=== PATIENT | male | born 1935 | race Caucasian/White ===

== ENCOUNTER 2019-08-25 11:40 | Emergency (ER) | payer MEDICARE ==
[~2019-08-25] VITALS: Ht 180.3 cm; Wt 72.7 kg
[~2019-08-25 11:40] MED LIST: ASPIRIN EC325 MG PO; ASPIRIN EC81 MG PO; AZITHROMYCIN500 MG PO; CYCLOBENZAPRINE5 MG PO; DEMADEX20 MG PO; FLAGYL500 MG PO; HYDRALAZINE HCL25 MG PO; HYDROCHLOROTHIA25 MG PO; ISOSORBIDE MONO30 MG PO; KLOR-CON M2020 MEQ PO; LEVOTHYROXINE100 MCG PO; SENNA GEN PO; SIMVASTATIN80 MG PO; SYMBICORT 16010.2 GM INH; TAMSULOSIN HCL0.4 MG PO; TORSEMIDE5 MG PO; VITAMIN D5000 UNIT PO; WARFARIN SODIUM5 MG PO
[2019-08-25] MEDS ORDERED: IMODIUM A-D2 M2 PO (14:10)
[2019-08-29] MEDS ORDERED: HYDRALAZINE HCL10 MG PO (08:01)
[2019-09-03] MEDS ORDERED: VANCOCIN HCL125 MG PO (13:22)
[2019-09-09] MEDS ORDERED: VANCOMYCIN HCL125 MG PO (10:43)
== END 2019-08-25 14:23 | disposition home or self-care (01) ==
LOC: ED 11:40
DX: R19.7 Diarrhea, unspecified (principal); I10 Essential (primary) hypertension; J44.9 Chronic obstructive pulmonary disease, unspecified; I25.2 Old myocardial infarction; Z87.891 Personal history of nicotine dependence; Z79.899 Other long term (current) drug therapy; Z79.01 Long term (current) use of anticoagulants
CPT/HCPCS: 36415; 80053; 85025; 99284

== ENCOUNTER 2020-06-21 10:43 | Inpatient (IN) | payer MEDICARE, OTHER ==
[~2020-06-21] VITALS: Ht 180.3 cm; Wt 72.6 kg
[~2020-06-21 10:43] MED LIST changes: +HYDRALAZINE HCL10 MG PO; +IMODIUM A-D2 M2 PO; +VANCOCIN HCL125 MG PO; +VANCOMYCIN HCL125 MG PO
--- NOTE | 2020-06-21 16:31 | EKG ---
[facility] [address] [place] [address] Signed Atrial fibrillation Nonspecific ST and T wave abnormality Abnormal ECG No previous ECGs available Confirmed by RAUL BULL DO ([id number]) on 06/21/2020 4:30:56 PM Electronically Signed By: RAUL BULL DO 06/21/20 1631 PATIENT NAME: TRENT JUNIOR Electrocardiogram DATE OF : 31 PHYSICIAN: RAUL BULL DO REPORT #: [id number] REPORT IS CONFIDENTIAL AND NOT TO BE RELEASED WITHOUT AUTHORIZATION
[2020-06-21] MEDS ORDERED: FEOSOL325 MG PO (16:59)
[2020-06-21] MEDS ORDERED: VITAMIN B-12100 MCG PO (17:00)
--- NOTE | 2020-06-21 17:01 | NUR ---
1605: PT ARRIVED TO ROOM 122 WITH HIS DAUGHTER PRESENT. PT DENIES ANY PAIN OR SOB. SAT ON HIS CHRONIC 4L O2 IS 100%, LUNG SOUNDS DECREASED IN ALL LOBES AND CRACKLES NOTED IN THE RLL. CALL HARPER WITHIN REACH AND PT ORIENTED TO HIS ROOM AND REQUESTED TO CALL BEFORE GETTING UP, PT STATES UNDERSTANDING. SEE ASSESSMENT.
--- NOTE | 2020-06-21 18:37 | NUR ---
PT RESTING IN BED AND CONTINUES TO DENY ANY PROBLEMS. VSS. PT'S DAUGHTER REMAINS AT THE BEDSIDE.
--- NOTE | 2020-06-21 19:24 | NUR ---
REPORT RECEIVED FROM DAY SHIFT RN. PT LYING IN BED WITH EYES CLOSED, NAD. O2 4L/NC IN PLACE. DAUGHTER IN ROOM. DENIES NEEDS. WHITE BOARD UPDATED. CALL LIGHT IN REACH.
--- NOTE | 2020-06-21 19:43 | NUR ---
BED ALARM WENT OFF. PATIENT WAS UP BY THE BED WANTING TO USE THE TOILET. 1 PA/SBA. PATIENT IS BACK IN BED, BED ALARM ON FOR SAFETY.
--- NOTE | 2020-06-21 20:31 | NUR ---
pt USED CALL LIGHT TO ASK FOR ASSISTANCE. STATES HE IS TOO WARM, AND NEEDS AN ADDITIONAL PILLOW UNDER HIS FEET. THE TEMP WAS TURNED DOWN TO 72 VERSUS 76. NOTHING FURTHER NEEDED AT THIS TIME.
--- NOTE | 2020-06-21 20:47 | NUR ---
pt REQUESTED ANOTHER PILLOW UNDER HIS FEET. "I ELEVATE MY FEET ABOUT 10-12 INCHES AT HOME, THIS FEELS ABOUT RIGHT". NOTHING FURTHER NEEDED. BED ALARM ON.
--- NOTE | 2020-06-21 21:04 | NUR ---
pt USED CALL LIGHT TO ASK FOR ASSISTANCE USING THE RESTROOM. pt STOOD AT BEDSIDE AND USED URINAL. VS AND I&Os COMPLETE. RN GEORGINA IN pt ROOM AT THIS TIME.
--- NOTE | 2020-06-21 21:27 | NUR ---
EVENING ASSESSMENT COMPLETE. SCHEDULED MEDS ADMINISTERED PER EMAR. PT ALERT AND ORIENTED. DENIES PAIN OR SOB. O2 4L/NC IN PLACE. BLE EDEMA NOTED. BLE ELEVATED ON PILLOWS. PT REMAINS WELL WITHIN FLUID RESTRICTION. DENIES QUESTIONS OR CONCERNS. CALL LIGHT IN REACH. BED ALARM FOR SAFETY.
--- NOTE | 2020-06-21 21:53 | NUR ---
pt CAUSED BED ALARM TO GO OFF, STATES HE WAS TRYING TO ADJUST HIS PILLOWS. THEN ASKED IF THIS CERTIFIED MEDICATION AIDE WOULD HELP HIM WITH USING THE URINAL. HE VOIDED 125ccs. BACK INTO BED, BED ALARM SET, CALL LIGHT WITHIN REACH. NO FURTHER NEEDS AT THIS TIME.
--- NOTE | 2020-06-21 22:37 | NUR ---
BED ALARM WENT OFF. PATIENT WAS UP TO USE THE BATHROOM. SBA. PATIENT VOIDED UNMEASURED. PATIENT IS BACK IN BED. BED ALARM ON FOR SAFETY.
--- NOTE | 2020-06-22 00:11 | NUR ---
PATIENT CALLED TO USE THE BATHROOM. SBA.
--- NOTE | 2020-06-22 01:56 | NUR ---
CALL LIGHT ANSWERED. SBA TO BR TO VOID. BACK TO BED, TENISHA WELL. DENIES PAIN OR SOB. O2 4L/NC IN PLACE. ASSISTED TO REPOSITION IN BED. NO FURTHER NEEDS. BED ALARM FOR SAFETY. CALL LIGHT IN REACH.
--- NOTE | 2020-06-22 03:23 | NUR ---
PATIENT CALLED. PATIENT STOOD UP TO USE THE URINAL. PATIENT IS BACK IN BED. WARM BLANKET PROVIDED. BED ALARM ON FOR SAFETY.
--- NOTE | 2020-06-22 05:11 | NUR ---
pt USED CALL LIGHT TO ASK TO USE THE RESTROOM. VS COMPLETE ALONG WITH WEIGHT. NOTHING FURTHER NEEDED AT THIS TIME.
--- NOTE | 2020-06-22 05:22 | NUR ---
SCHEDULED MEDS ADMINISTERED. PT DENIES PAIN OR SOB. STATES "THE ONLY THING I NEEDS IS MORE SLEEP". OXYGEN IN PLACE. BLE ELEVATED ON PILLOWS. BED ALARM FOR SAFETY. CALL LIGHT IN REACH.
--- NOTE | 2020-06-22 07:38 | NUR ---
RECEIVED REPORT FROM GEORGINA MCRAE. PT APPEARS TO BE RESTING COMFORTABLY IN BED BUT WAKES UP WITH SOUND OF THIS RN ENTERING ROOM. PT TO HAVE AN ECHO THIS AM
--- NOTE | 2020-06-22 10:15 | NUR ---
PATIENT SLEEPING. WILL RETURN LATER.
--- NOTE | 2020-06-22 10:30 | NUR ---
PATIENT IN BED RESTING WITH EYES CLOSED, VISITOR IN ROOM. CALL LIGHT IN REACH. NO FURTHER NEEDS AT THIS TIME.
--- NOTE | 2020-06-22 11:31 | NUR ---
this rn in pts room to give flu vaccine and added meds to emar. pts daughter at bedside at this time. pt reports no pain and daughter states that he is looking better.
--- NOTE | 2020-06-22 11:43 | NUR ---
PATIENT WITH PHYSICAL THERAPY. WILL RETURN LATER.
--- NOTE | 2020-06-22 13:20 | NUR ---
SPOKE WITH PATIENT AND DAUGHTER IN ROOM. PATIENT WITH HOB UP EATING LUNCH. PATIENT LIVES ALONE IN [place]. HAS TWO STEPS INTO HOME. USES A WALKER. DOES NOT DRIVE. DAUGHTER ROSETTA IS IN ROOM AND SHE IS STAYING WITH HIM AT THIS TIME. PATIENT IS RETIRED. USES OXYGEN CONTINUOUSLY AT 4LNC [facility]OUGH [facility]. HE PLANS TO RETURN HOME AT DISCHARGE. HE DENIES CONCERN TO AFFORD MEDS, FOOD OR UTILITIES. DAUGHTER STATES SHE WILL BE WITH HIM AT HOME. CM WILL FOLLOW NEEDED.
--- NOTE | 2020-06-22 13:45 | NUR ---
PATIENT IN BED RESTING WITH EYES CLOSED. CALL LIGHT IN REACH. NO FURTHER NEEDS AT THIS TIME. FRESH WATER GIVEN.
--- NOTE | 2020-06-22 13:47 | NUR ---
THIS RN IN PTS ROOM TO GIVE AFTERNOON MEDS AND CHAVARRIA AFTERNOON ASSESSMENT. PT DROWSY BUT EASILY WAKES UP. PT STATES HE HAS NO CONCERNS AT THIS TIME. PT DOES NOT LIKE TO HAVE ICE IN HIS FLUIDS. THIS RN GAVE PT A FEW SIPS OF WATER. BED ALARM ON DUE TO PTS DAUGHTER NOT IN ROOM. URINAL AND CALL LIGHT WITHIN REACH
--- NOTE | 2020-06-22 13:48 | NUR ---
PATIENT IN BED RESTING WITH EYES CLOSED. FRESH WATER GIVEN. CALL LIGHT IN REACH. NO FURTHER NEEDS AT THIS TIME.
--- NOTE | 2020-06-22 15:42 | NUR ---
THIS RN IN PTS ROOM TO GIVE PT AFTERNOON MEDS. PT SITTING UP IN CHAIR. PT HAS NO COMPLAINTS AND STATES "I FEEL MUCH BETTER" PT POINTED TO HIS ANKLES AND STATED THEY LOOKED BETTER.
--- NOTE | 2020-06-22 17:36 | NUR ---
PT SITTING UP IN CHAIR EATING DINNER AT THIS TIME. PT HAS NO COMPLIANTS OR CONCERNS
--- NOTE | 2020-06-22 18:15 | NUR ---
PATIENT SITTING IN CHAIR WATCHING TV. B\P LOW. TAKEN TWICE LEFT ARM 84/47 57 MAP, RIGHT ARM 94/44 57 MAP. RN NOTIFIED. LINDSAY LIGHT IN REACH. NO FURTHER NEEDS AT THIS TIME.
--- NOTE | 2020-06-22 18:38 | NUR ---
THIS RN IN PTS ROOM TO RECHECK PTS BP. PT STATES HE DOES NOT FEEL ANY EFFECTS OF HAVING A LOW BP. MD NOT NOTIFIED DUE TO BP OUTSIDE OF CALL PARAMETERS
--- NOTE | 2020-06-22 19:37 | NUR ---
REPORT RECEIVED FROM DAY SHIFT RN. PT LYING IN BED ALERT AND ORIENTED. RR EVEN AND UNLABORED. O2 4L/NC IN PLACE. FAMILY IN ROOM. PT DENIES NEEDS. WHITE BOARD UPDATED. CALL LIGHT IN REACH. BED ALARM FOR SAFETY.
--- NOTE | 2020-06-22 20:50 | NUR ---
BED ALARM SOUNDING. PT SITTING ON EDGE OF BED, WANTING EXTRA COVERS OFF BED, THEN WANTED TO USE THE BR, THOUGHT HE WAS GOING TO HAVE A BM. JUST VOIDED. BACK TO BED, WITH MIMINAL ASSISTANCE. BED ALARM PLACED, REMINDED PT TO USE CALL LIGHT WHEN HE NEEDS TO GET UP.
--- NOTE | 2020-06-22 22:26 | NUR ---
EVENING ASSESSMENT COMPLETE. SCHEDULED MEDS ADMINISTERED PER EMAR. SCHEDULED CARDIAC MED HELD DUE TO LOW BLOOD PRESSURE. PT DENIES SOB. NO PAIN OR NAUSEA. O2 4L/NC IN PLACE. RR EVEN AND UNLABORED. EDEMA NOTED BLE. BLE ELEVATED ON PILLOWS. PT REPORTS BEING DROWSY HE DID NOT SLEEP MUCH LAST NOC. DENIES FURTHER NEEDS. BED ALARM FOR SAFETY. CALL LIGHT IN REACH.
--- NOTE | 2020-06-23 00:30 | NUR ---
BED ALARM SOUNDING. PT STOOD AT SIDE OF BED TO URINATE WITH NO RESULTS. BACK IN BED. BLE ELEVATED. NO SOB NOTED. 4L/NC IN PLACE. BED ALARM FOR SAFETY.
--- NOTE | 2020-06-23 01:29 | NUR ---
bed alarm went off. PATIENT IS UP. PATIENT WANTED TO GET UP AND WALK AROUND THE ROOM. THIS PATIENT SERVICES REPRESENTATIVE STAYED WITH THE PATIENT. PATIENT SITS ON THE CHAIR WHEN GETS TIRED. PATIENT LIKES TO TALK. PATIENT STILL UP IN THE CHAIR RESTING. PRIMARY RN IS WITH PATIENT.
--- NOTE | 2020-06-23 03:02 | NUR ---
PT AWAKE SITTING IN RECLINER. REQUESTING PRN FOR CONSTIPATION. NIO FOR BOWEL CARE. ADMINISTERED PER ORDER. PT WISHES TO REMAIN IN CHAIR AND AMB IN ROOM. PATTERNMAKER PRESSURE CAST IN ROOM FOR SAFETY.
--- NOTE | 2020-06-23 04:30 | NUR ---
PT UP AND DOWN FROM RECLINER TO AMBULATE. ACCOUNTANCY PROFESSOR WAS IN ROOM TO ASSIST. PT REMAINS IN RECLINER, CHAIR ALARM PLACED AT THIS TIME. APPLE JUICE PROVIDED. PT DENIES PAIN OR SOB. RESPIRATIONS EVEN AND UNLABORED.
--- NOTE | 2020-06-23 04:37 | NUR ---
SPENT TIME VISITING WITH pt, ASSISTED WITH EXERCISES, AND PROVIDED COMPANY. HE IS NOW IN BED TRYING TO GET SOME MORE REST. NOTHING FURTHER NEEDED AT THIS TIME.
--- NOTE | 2020-06-23 05:38 | NUR ---
pt USED CALL LIGHT TO ASK FOR ASSISTANCE INTO THE RESTROOM. VS AND I&Os COMPLETE, BED ALARM SET. NOTHING FURTHER NEEDED.
--- NOTE | 2020-06-23 06:52 | NUR ---
SCHEDULED MEDS ADMINISTERED. PT RESTING IN BED, DENIES NEEDS. CALL LIGHT IN REACH. BED ALARM FOR SAFETY.
--- NOTE | 2020-06-23 07:37 | NUR ---
Entered pt room for shift report from Marlene MCRAE and Pia RN (electronic news gathering camera person). Pt was lying in bed, bed alarm on, resting appearing comfortable. Pt woke to our introduction and greeted us pleasantly, having no concerns to report at this time. Pt was left lying in bed in its lowest position, bed alarm on, call light within reach.
--- NOTE | 2020-06-23 07:41 | NUR ---
Entered pt room responding to call light. Pt helped to the bedside to use urinal. Pt was able to void and reported no further urge. Pt helped back into bed, bed alarm put back on, call light within reach.
--- NOTE | 2020-06-23 08:25 | NUR ---
PATIENT USING THE BATHROOM. PATIENT BACKS TO CHAIR. ONE PERSON ASSISTING WITH WALKER. WHITE BOARD UPDATED. LINENS CHANGED. CALL LIGHT WITHIN REACH. NO OTHER NEEDS AT THIS TIME
--- NOTE | 2020-06-23 09:22 | NUR ---
Entered pt room for med pass. Pt was sitting up in chair finishing breakfast. Pt was assisted to the bathroom by Quyen MCRAE, with his walker as well, and advised to use light when finished; we were outside door. Pt was assisted back to chair. Pt took medications without difficulty. Pt was left sitting up in chair, table in front of him, call light within reach. Pt stated no further needs at this time.
--- NOTE | 2020-06-23 09:50 | NUR ---
PATIENT SITTING UP IN CHAIR. VISITOR AND RN IN ROOM. VITAL SIGNS AND I&O DONE. CALL LIGHT WITHIN REACH. NO OTHER NEEDS AT THIS TIME
--- NOTE | 2020-06-23 11:30 | NUR ---
Spoke with Juan Diego and his daughter, Aniya. Daughter is here from [place] staying with dad since December. She is able to cont. her job from home. She states he is weak and deconditioned and she would like him to return to [facility] so he can remain at home. Discussed with Juan Digeo and he is agreement. He also states knee and hip pain limit his activitiy. Pt was discussed in [address] Toribio and he was in agreement for Transitional Care for Rehab. Brochure for Transition Care given with list of rehab programs in the area. Also gave brochure for [facility] as daughter states she has to return to [place] monthly for 2-3 days. She would like someone to stay with her dad at night. Let her know, [facility] has a waiting list, so she will need to call sooner to get on the list.
--- NOTE | 2020-06-23 12:10 | NUR ---
PT SITTING IN CHAIR, TV ON AND DAUGHTER AT HIS SIDE. PT STATES HE IS FEELING MUCH BETTER. THANKED ME FOR COMING IN. GAVE BLESSING
--- NOTE | 2020-06-23 13:32 | NUR ---
PATIENT SITTING UP IN CHAIR. VITAL SIGNS AND I&O DONE. LOW BLOOD PRESSURE. RN NOTIFIED. CALL LIGHT WITHIN REACH. NO OTHER NEEDS AT THIS TIME
--- NOTE | 2020-06-23 13:38 | NUR ---
VORB TO HOLD TORSEMIDE AT THIS TIME DUE TO BP OF 95/45, P49.
--- NOTE | 2020-06-23 14:42 | NUR ---
Entered pt room to do afternoon assessment with Quyen MCRAE. Pt was reclining in the chair, with his left knee under a hot-pack post PT exercises with Maggie PT. Pt reports some soreness in his L knee, but no pain or other complaints at this time. Pt was left reclining in his chair, L knee being warmed, call light within reach, table beside him.
--- NOTE | 2020-06-23 15:53 | NUR ---
PATIENT SITTING UP IN CHAIR. RN IN ROOM. PATIENT REFUSED TO TAKE A SHOWER TODAY. PATIENT WOULD LIKE TO TAKE A SHOWER TOMORROW. CALL LIGHT WITHIN REACH. NO OTHER NEEDS AT THIS TIME
--- NOTE | 2020-06-23 17:52 | NUR ---
PATIENT SITTING UP IN CHAIR. VITAL SIGNS AND I&O DONE. CALL LIGHT WITHIN REACH. NO OTHER NEEDS AT THIS TIME
--- NOTE | 2020-06-23 20:01 | NUR ---
PATIENT UP IN BEDSIDE ARM CHAIR WITH FAMILY AT BEDSIDE. PATIENT DENIES ANY NEEDS AT THIS TIME. CALL LIGHT IN REACH. PATIENT APPEARS AND DENIES ANY DISTRESS. CALL LIGHT IN REACH. PATIENT REMAINS ON HIS CHRONIC 4L/NC.
--- NOTE | 2020-06-23 21:53 | NUR ---
V/S AND I&O TAKEN AND CHARTED.
--- NOTE | 2020-06-23 21:55 | NUR ---
PATIENT JUST BACK FROM THE BATHROOM AND IN BED ON HIS 4L/NC AND DOING WELL, RADIAL AND APICAL PULSE 62. PATIENT TOOK HIS PM MEDS WITHOUT DIFFICULTY AND IS READY TO GO TO SLEEP. WARM BLANKETS GIVEN AND PATIENT TUCKED IN. CALL LIGHT IN REACH. NIGHT LIGHT ON.
--- NOTE | 2020-06-23 23:04 | NUR ---
PATIENT IS RESTING QUIETLY SUPINE, RESPIRATIONS REGULAR AND EVEN, CALL LIGHT IN REACH.
--- NOTE | 2020-06-24 00:21 | NUR ---
PATIENT RESTING QUIETLY ON HIS RIGHT SIDE, RESPIRATIONS REGULAR AND EVEN, EYES CLOSED AND CALL LIGHT IN REACH.
--- NOTE | 2020-06-24 02:00 | NUR ---
PATIENT RESTING QUIETLY ON LEFT SIDE, RESPIRATIONS REGULAR AND EVEN AND EYES CLOSED. REMAINS ON 4L/NC. CALL LIGHT IN REACH.
--- NOTE | 2020-06-24 02:58 | NUR ---
PATIENT HAD VOIDED 100MLS IN URINAL AND THIS WAS DOCUMENTED AND PATIENT IS BACK TO SLEEP. CALL LIGHT IN REACH.
--- NOTE | 2020-06-24 05:25 | NUR ---
PATIENT HAS PRETTY MUCH SLEPT THROUGH THE NIGHT AND HAS ONLY CALLED ONCE TO HAVE HIS BED ADJUSTED. REMAINS ON HIS 4L/NC. PATIENT HAS BEEN USING THE URINAL AT BEDSIDE. PATIENT WILL BE GOING TO SWING BED STATUS TODAY.
--- NOTE | 2020-06-24 08:02 | NUR ---
RECIEVED REPORT FROM MARTINE MCRAE. PT APPEARS TO BE RESTING AT THIS TIME WITH RESPIRATIONS NOTED.
--- NOTE | 2020-06-24 09:55 | NUR ---
THIS RN IN PTS ROOM TO GIVE MORNING MEDS AND DO MORNING ASSESSMENT. PT HAS NO CONCERNS OR NEEDS AT THIS TIME. PTS DAUGHTER HAD QUESTIONS AND THIS RN ANSWERED ALL TO THE BEST OF HER ABILITY
== END 2020-06-24 10:40 | disposition swing bed (61) | DRG 291 ==
LOC: ED 10:43 → MS 15:22
PROVIDERS: ADMIT Student in an Organized Health Care Education/Training Program; ATTEND Student in an Organized Health Care Education/Training Program
DX: I13.0 Hypertensive heart and chronic kidney disease with heart failure and stage 1 through stage 4 chronic kidney disease, or unspecified chronic kidney disease (principal); I50.33 Acute on chronic diastolic (congestive) heart failure; J96.11 Chronic respiratory failure with hypoxia; Z20.828 Contact with and (suspected) exposure to other viral communicable diseases; N18.9 Chronic kidney disease, unspecified; I48.0 Paroxysmal atrial fibrillation; E78.5 Hyperlipidemia, unspecified; I73.9 Peripheral vascular disease, unspecified; I25.10 Atherosclerotic heart disease of native coronary artery without angina pectoris; I25.2 Old myocardial infarction; J44.9 Chronic obstructive pulmonary disease, unspecified; N40.0 Benign prostatic hyperplasia without lower urinary tract symptoms; Z99.81 Dependence on supplemental oxygen; Z95.5 Presence of coronary angioplasty implant and graft; Z79.01 Long term (current) use of anticoagulants; Z87.891 Personal history of nicotine dependence; Z79.51 Long term (current) use of inhaled steroids; Z79.899 Other long term (current) drug therapy
CPT/HCPCS: 36415; 71046; 80048; 81001; 83605; 83735; 83880; 84443; 84484; 85025; 85610; 90662; 93005; 93010; 93306; 94760; 97110; 97116; 97162; 97165; 99285-25; C9803; J1940

== ENCOUNTER 2020-06-24 10:40 | Inpatient (IN) | payer MEDICARE, OTHER ==
[~2020-06-24] VITALS: Ht 180.3 cm; Wt 71.7 kg
[~2020-06-24 10:40] MED LIST changes: +FEOSOL325 MG PO; +VITAMIN B-12100 MCG PO
--- NOTE | 2020-06-24 11:10 | NUR ---
PATIENT CALLED FOR ASSISTANCE TO CHAIR FROM BED. 1PA WITH FWW. FACE AND HANDS WASHED. REFUSED ORAL CARE. O/T IN FOR EXCERCISES. DAUGHTER IN ROOM. LINENS CHANGED
--- NOTE | 2020-06-24 11:20 | NUR ---
Spoke with pt. He is walking in the [place] with his daughter.
--- NOTE | 2020-06-24 14:27 | NUR ---
THIS RN IN PTS ROOM TO GIVE PT MEDS AND DO ASSESSMENT. PT SITTING UP TO THE CHAIR AND IS A BIT DROWSY THIS AFTERNOON, PT RESPONSIVE TO VOICE THOUGH. PT HAS NO COMPLAINTS AT THIS TIME
--- NOTE | 2020-06-24 15:04 | NUR ---
PATIENT UP IN CHAIR, I&OS CHARTED. DIETARY IN FOR DINNER ORDER. CALL LIGHT IN REACH
--- NOTE | 2020-06-24 19:35 | NUR ---
SHIFT REPORT FROM NURSE PHAM. PT UP IN CHAIR, DAUGHTER IN ROOM VISITING. NO REQUESTS AT THIS TIME.
--- NOTE | 2020-06-24 22:21 | NUR ---
PT ASSISTED TO BED. BP WAS SLIGHTLY HYPOTENSIVE AT 105/59 WITH A MAP OF 69. HR IS IRREGULAR WHICH IS PREVIOUSLY KNOWN. BP MEDS HELD D/T LOW BP/MAP. PT TO CALL FOR ASSISTANCE TO BATHROOM. CALL LIGHT WITHIN REACH.
--- NOTE | 2020-06-25 01:53 | NUR ---
ROUNDS COMPLETE. PT LAYING RIGHT LATERAL IN BED. NO APPARENT SIGNS OF DISTRESS.
--- NOTE | 2020-06-25 05:44 | NUR ---
IN ROOM FOR MORNING WEIGHT AND I&OS. PT WAS SLEEPING PEACEFULLY. ASSESSMENT COMPLETE. NO REQUESTS AT THIS TIME. CALL LIGHT WITHIN REACH
--- NOTE | 2020-06-25 07:23 | NUR ---
REPORT RECEIVED FROM THOR RICE. PT RESTING IN BED. PT DENIES PAIN AND NAUSEA. PT ASSISTED WITH ORDERING BREAKFAST. NO ADDITIONAL REQUESTS OR COMPLAINTS AT THIS TIME. CALL LIGHT WITHIN REACH.
--- NOTE | 2020-06-25 09:45 | NUR ---
MORNING ASSESSMENT AND MEDICATION DUE. PT WORKING WITH PHYSIAL THERAPY. PT TOLEARTES AMAMBULATION IN ANGELA WELL WITH 1 REST BREAK DURING 1.5 LAPS IN ANGELA. PT UP TO CHAIR. VITALS TAKEN. MEDICATION GIVEN. PT AND FAMILY STATE PT HAS ALREADY HAD THE FLU VACCINE. PHARMACY CALLED TO [facility]. ORDER DISCONTINUED. ASSESSMENT DONE. LUNG SOUNDS CLEAR. OCCATIONAL COUGH WITH SMALL AMOUNTS OF CLEAR SPUTUM. PT DENIES PAIN AT THIS TIME REPORTING OCCATIONAL PAIN IN KNEES WITH WALKING. PT UP TO CHAIR. OCCUPATIONAL THERAPY TO BEDSIDE TO WORK WITH PT. PT DENIES ADDITIONAL REQUESTS OR COMPLAINTS. CALL LIGHT WITHIN REACH.
--- NOTE | 2020-06-25 11:00 | NUR ---
PATIENT IS ON A LOW SODIUM DIET DUE TO HISTORY OF CHF. DAUGHTER, ROSETTA, IS IN THE ROOM. PATIENT STATES HE WAS EDUCATED ON A LOW SODIUM DIET ONCE BEFORE. HE SAID HE CUT DOWN ON HIS SODIUM INTAKE BUT ROSETTA SAID HE HASN'T. HE LIKES TO EAT CHEETOS AND ICE CREAM FOR AN EVENING SNACK. PATIENT DOES NOT COOK, ROSETTA DOES. SHE HAS BEEN STAYING WITH HIM THOUGH SHE LIVES IN [place]. I REMINDED HER HOW TO READ A LABEL FOR SODIUM AND EXPLAINED THE % DAILY VALUE. ALSO EXPLAINED SOME COMMON HIGH SODIUM FOODS TO AVOID SUCH CANNED SOUPS, PROCESSED MEATS, AND OTHER PACKAGED ITEMS. PROVIDED A LOW SODIUM GROCERY LIST AND SHOWED ROSETTA THE TWO BRANDS OF SOUPS THAT ARE MUCH LOWER IN SODIUM. ALSO PROVIDED FLAVORING TIPS WITHOUT ADDING SALT, LOW SODIUM SNACK LIST, AND A FEW RECIPES. SHE APPRECIATED THE EDUCATION AND KNOWS IT IS IMPORTANT FOR HER DAD TO FOLLOW. SHE HAS NO OTHER QUESTIONS AT THIS TIME. WILL CONTINUE TO MONITOR WHILE HERE.
--- NOTE | 2020-06-25 12:15 | NUR ---
THIS RN TO ROOM TO CHECK ON PT. PT UP TO CHAIR AND ANTICIPATING LUNCH. 7-UP EXCHANGED FOR WATER INTAKE PER PT PREFERENCE. PTS DAUGHTER AT BEDSIDE. NO ADDITIONAL REQUESTS OR COMPLAINTS AT THIS TIME. CALL LIGHT WITHIN REACH.
--- NOTE | 2020-06-25 13:14 | NUR ---
MEDICATION DUE. THIS RN TO ROOM TO CHECK ON PT. PT UP TO CHAIR FINISHING LUNCH, GOOD APPITITE NOTED. 1 PERSON ASSIST, FRONT WHEEL WALKER UP TO RESTROOM FOR BOWEL MOVEMENT. PT ASSISTED WITH NIKHIL CARE. FRESH DEPENDS IN PLACE. PT BACK TO CHAIR AND FINISHING PUDDING. WARM BLANKET PROVIDED. FAMILY AT BEDSIDE. NO ADDITIONAL REQUESTS OR COMPLAINTS. CALL LIGHT WITHIN REACH.
--- NOTE | 2020-06-25 14:17 | NUR ---
Transitional care CM assessment completed. Spoke with pt and daughter. Pt lives in a 1 story home in [place] and daughter has been staying with him since December. She states concerns as he is deconditioned and less ability to care for self. He currently uses a wc when he goes out. She would like there to be goals for him to be able to walk into the Dr.s office and to get on a plane. She also states her concern he will become bedbound as he is doing less and less. Discussed this with the pt. and he states he does not want to be bedbound. He would like to be more independent. He no longer drives as he is concerned he might hurt someone as he has poor reflexes. Pt is in agreement to improve conditioning so he can walk independently. He did perk up when his daughter started discussing spending the winter in [place]. He states he did this several years with his and would like to go to [place] this winter. Pt and daughter deny needs for when pt can be dcd as he has multiple equipment. Discussed IDT meeting and goals and updated PT and OT will set goals with them and write the goals on the board. PT updated to goals stated by daughter.
--- NOTE | 2020-06-25 15:36 | NUR ---
THIS RN TO ROOM TO CHECK ON PT. PT UP TO CHAIR. PT DENIES PAIN AND NAUSEA. VITAL SIGNS TAKEN. MEDICATION GIVEN. 7-UP PROVIDED PER PT REQUEST. PT REPORTS HE WAS UP TO AMBULATE WITH PHYSICAL THERAPY AND "IT WENT WELL." NO ADDITIONAL REQUESTS OR COMPLAINTS AT THIS TIME. CALL LIGHT WITHIN REACH. FAMILY AT BEDSIDE.
--- NOTE | 2020-06-25 15:50 | NUR ---
THIS RN TO ROOM TO CHECK ON PT. PT UP TO STAND PER REQUEST. PT ENCORUAGED TO GO FOR A WALK, DECLINES. PT REPORTS HE WOULD LIKE TO CONTINUE TO SIT UP IN THE CHAIR. PT DENIES PAIN AND NAUSEA STATING HIS KNEES HURT WHEN HE WALKS BUT ARE OTHERWISE OK. PT OFFERED TYLENOL, DECLINES. NO ADDITIONAL REQUESTS OR COMPLAINTS. CALL LIGHT WITHIN REACH. CHAIR ALARM ON.
--- NOTE | 2020-06-25 16:43 | NUR ---
PT IN TRANSITIONAL CARE PROGRAM FOR DECONDITIONING. 1 PERSON ASSIST WITH FRONT WHEEL WALK UP IN ROOM AND WITH PHYSICAL THERAPY THIS SHIFT. PT UP TO CHAIR FOR MOST OF SHIFT. SHOWER THIS SHIFT. PT REMAINS ON 4L O2 BY NC PER CHRONIC NEED WITH O2 SATURATIONS ABOVE 94%. FAMILY AT BEDSIDE FOR MOST OF THE DAY. PT TOELRATING FLUID RESTRICION AND 2 GRAM SODIUM DIET WITH GOOD APPITITE. PT VOIDING QUANTITY SUFFICIENT. PT USES CALL LIGHT APPROPRIATLY.
--- NOTE | 2020-06-25 18:30 | NUR ---
PT CALL LIGHT ON. PT REQUESTS ASSISTANCE UP TO RESTROOM. 1 PERSON ASSIST WITH FRONT WHEEL WALKER UP TO RESTROOM. PT TOLERATES AMBULATION WELL WITH 4L O2 BY NC IN PLACE. PT VOIDS WITHOUT ISSUE. 1 PERSON ASSIST, FRONT WHEEL WALKER BACK TO CHAIR. WARM PACK PROVIDED PER PT REQUEST FOR LOWER BACK AND LEFT KNEE. PT DENIES ADDITIONAL REQUESTS OR COMPLAINTS AT THIS TIME. CALL LIGHT WITHIN REACH. CHAIR ALARM ON.
--- NOTE | 2020-06-25 19:10 | NUR ---
RECEIVED REPORT FROM THOR KAN. pt RESTING IN CHAIR, NO REQUESTS AT THIS TIME. CALL LIGHT WITHIN REACH. WHITEBOARD UPDATED.
--- NOTE | 2020-06-25 20:30 | NUR ---
CALL LIGHT ON. pt REQUESTED A SODA, PROVIDED. ASSESSMENT DONE. MEDICATIONS GIVEN (SEE MAR). pt REQUESTED TO REMAIN IN THE CHAIR FOR NOW, WILL CALL WHEN READY TO GO TO BED. CALL LIGHT WITHIN REACH.
--- NOTE | 2020-06-25 21:50 | NUR ---
CALL LIGHT ON. pt REQUESTED TO GO TO BED. UP TO VOID, SBA FWW. TO BED. pt NOTED A QUARTER SIZED SKIN BREAKDOWN AREA UNDER HIS ALERT BAND, DRESSED WITH GAUZE. POSSESSIONS AND CALL LIGHT WITHIN REACH.
--- NOTE | 2020-06-26 00:37 | NUR ---
ROUNDED ON pt. RESTING IN BED WITH EYES CLOSED, RESPIRATIONS REGULAR AND UNLABORED. CALL LIGHT WITHIN REACH.
--- NOTE | 2020-06-26 03:19 | NUR ---
ROUNDED ON pt. RESTING WITH EYES CLOSED, RESPIRATIONS REGULAR AND UNLABORED. CALL LIGHT WITHIN REACH.
--- NOTE | 2020-06-26 04:37 | NUR ---
RECEIVED REPORT, PT IS RESTING WITH EYES CLOSED, RR IS EVEN AND NONLABORED. CALL LIGHT IS CLOSE.
--- NOTE | 2020-06-26 05:53 | NUR ---
PT IS RESTING WITH EYES CLOSED, RR IS EVEN AND NONLABORED ON O2. CALL LIGHT IS CLOSE.
--- NOTE | 2020-06-26 06:31 | NUR ---
ADMINISTERED THYROID MEDICATIONS AND OBTAINED PT'S WEIGHT. HE DENIES FURTHER NEEDS AT THIS TIME. CALL LIGHT IS CLOSE.
--- NOTE | 2020-06-26 07:15 | NUR ---
REPORT RECEIVED FROM THOR CHILDRESS. PT RESTING IN BED ON RIGHT SIDE WITH EYES CLOSED. RESPIRATIONS EVEN AND UNLABORED. BED RAILS UP. CALL LIGHT WITHIN REACH. PT ALLOWED TO REST.
--- NOTE | 2020-06-26 09:44 | NUR ---
MORNING ASSESSMENT AND MEDICATION DUE. PT UP TO CHAIR FINISHING BREAKFAST. GOOD APPTITIE NOTED WITH 100% EATEN. PT TOELARTING FLUID RESTRICION WELL. PT DENIES PAIN AND NAUSEA AT THIS TIME. LUNG SONDS CLEAR. I.S. USE DEMONSTRATED WITH PT REACHING 1000ML. MINIMAL EDEMA NOTED TO LOWER EXREMITIES. PT HAS HAD BOWEL MOVEMENT TODAY BUT STATES HE NEEDS TO TAKE SENNA AND MIRALAX EVERYDAY TO STAY REGULAR. VITALS TAKEN. BLOOD PRESSURE NOTED TO BE 109/43, CONSULTED REGARDING HYDRALAZINE ORDER. MD STATES TO HOLD HYDRALAZINE AT THIS TIME, MEDICATION HELD. OCCUAPTIONAL THERAPY TO BEDSIDE. PT WORKING WITH OCCUPATIONAL THERAPY TO DO ORAL CARE AND EXERCISES, UP WITH FRONT WHEEL WALKER AND STAND BY ASSIST. NO ADDITIONAL REQUESTS OR COMPLANITS AT THIS TIME. CALL LIGHT WITHIN REACH.
--- NOTE | 2020-06-26 11:00 | NUR ---
THIS RN TO ROOM TO CHECK ON PT. PT RESTING IN CHAIR WITH EYES CLOSED, RESPIRIATIONS EVEN AND UNLABORED. CALL LIGHT WITHIN REACH. PT ALLOWED TO REST.
--- NOTE | 2020-06-26 12:09 | NUR ---
PT FINISHED WITH PHYSICAL THERAPY. PT BACK TO ROOM. PT DENIES PAIN AFTER PHYSICAL THERAPY STATING "I FEEL GOOD." PT UP TO CHAIR FOR LUNCH. 7-UP PROVIDED PER PT REQUEST. DAUGHTER AT BEDSIDE. CASE MANAGEMENT TO BEDSIDE TO UPDATE PT AND FAMILY ON PLAN OF CARE. FAMILY PLANNING OUTING FOR PT NEXT WEEK. NO ADDITIONAL REQUESTS OR COMPLAINTS AT THIS TIME. CALL LIGHT WITHIN REACH. FAMILY AT BEDSIDE.
--- NOTE | 2020-06-26 12:30 | NUR ---
Spoke with Juan Diego and his daughter Amanda. He states he feels good. Per daughter he was able to walk from his room to PT without stopping. She is excited for pt. Denies needs. Pt. will cont. PT and OT.
--- NOTE | 2020-06-26 13:45 | NUR ---
THIS RN TO ROOM TO CHECK WITH PT AND GIVE MEDICATION. PT UP WITH PHYSICAL THERAPY. PT TOLREATING PHYSICAL THERAPY WELL, "MILD" 2/10 SORENESS TO KNEES NOTED. WILL RETURN TO GIVE MEDICATIONS AND TAKE VITALS SIGNS AFTER PT RETURNES FROM PHYSICAL THERAPY.
--- NOTE | 2020-06-26 14:39 | NUR ---
PT FINISHED WORKING WITH PHYSICAL THERAPY. PT BACK TO ROOM AND UP TO CHAIR. VITALS TAKEN. MEDICATIONS GIVEN (SEE MAR). PT DEMONSTRATES USE OF I.S. REACHING 100ML. 7-UP PROVIDED PER PT REQUEST AND WITHIN FLUID RESTRICION. NO ADDITIONAL REQUESTS OR COMPLAINTS. CALL LIGHT WITHIN REACH.
--- NOTE | 2020-06-26 15:00 | NUR ---
I STOOD BY WHILE PATIENT GOT OUT OF HIS CHAIR AND USE HIS WALKER TO WALK TO THE BATHROOM.
--- NOTE | 2020-06-26 16:14 | NUR ---
PT IN TRANSITIONAL CARE PROGRAM FOR DECONDITIONING. PT UP TO CHAIR WITH STAND BY ASSIST AND FRONT WHEEL WALKER. PHSYICAL THERAPY X2 THIS SHIFT, TOLERATED WELL WITH MINIMAL REST BREAKS AND MINOR PAIN IN KNEES RESOLVED WITH HEAT PACK. KERLEX APPLIED TO NEW SKIN TEAR UNDER MEDICAL ALERT BRACELT ON RIGHT HAND. PT DECLINED SHOWER THIS SHIFT. PT TOLERATING 2 GRAM SODIUM DIET WITH FLUID RESTRICION WELL, GOOD APPITITE NOTED. PT REMAINS ON 4L O2 BY NC PER BASELINE. MORNING DOSE OF HYDRALAZINE HELD PER MD ORDER RELATED TO LOWER BLOOD PRESSURE, AFTERNOON DOSE GIVEN. PT VOIDING QUANTITY SUFFICIENT. PT USES CALL LIGHT APPROPRIATLY.
--- NOTE | 2020-06-26 16:20 | NUR ---
THIS RN TO ROOM TO CHECK ON PT. PT DENIES PAIN AND NAUSEA AND ANY OTHER REQUESTS. THIS RN SITS TO TALK WITH PT FOR 20 MINUTES. 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 PT TALKS ABOUT KIDS AND GRAND KIDS WITH FOND RECOLECTIONS. PT REMAINS UP TO CHAIR. DINNER ORDER CALLED TO [place]. NO ADDITIONAL REQUESTS OR COMPLAINTS AT THIS TIME. CALL LIGHT WITHIN REACH.
--- NOTE | 2020-06-26 17:42 | NUR ---
THIS RN TO ROOM TO CHECK ON PT. PT UP TO CHAIR EATING DINNER. WARM PACK PROVIDED FOR PT FOR ONGOING RIGHT KNEE SORENESS. PT RATES ACHE IN KNEE AT 1/10 AND DENIES NEED FOR PAIN MEDICAITON. NO ADDITIONAL REQUESTS OR COMPLAINTS. CALL LIGHT WITHIN REACH. PTS SON AT BEDSIDE.
--- NOTE | 2020-06-26 19:33 | NUR ---
BEDSIDE REPORT GIVEN TO THOR JEFFERSON WHO WILL BE ASSUMING CARE OF PT.
--- NOTE | 2020-06-26 19:43 | NUR ---
Pt in br, back to chair, 1PA/FWW, O24L chronic, on fluid restriction, tolerated well. Watching TV
--- NOTE | 2020-06-26 20:20 | NUR ---
pt in chair, declines to have legs elevated. O2 4L/NC chronic, dressing over R wrist= my alrm belt was rubbing against my skin stated. bruised areas over arms. Alert and oriented, answers slow but appropriate. 1PSA/FWW, uses call light, on 1800cc fluid restriction. tolerating well. Warm pad to back and knees, no other requests
--- NOTE | 2020-06-26 21:12 | NUR ---
uP TO BR, VOIDED AND HAD SMALL BM, FORMED, BACK TO BED, TOLERATED WELL, O2 4LNC IN PLACE, NO SOB, WARM BLANKET, AND WARM PACK TO BACK AND KNEES AREA. RT IN ROOM ASSESSING PT.CALL LIGHT AND FLUIDS AT BEDSIDE
--- NOTE | 2020-06-26 23:59 | NUR ---
in bed resting, o2 nc in place, call light anf fluids at bedside
--- NOTE | 2020-06-27 02:48 | NUR ---
O2 4L NC IN PLACE, RESTING, EYES CLOSED, NO RESP DISTRESS, TURNS SELF IN BED
--- NOTE | 2020-06-27 04:20 | NUR ---
rESTING, O24LNC IN PLACE, TURNS SELF IN BED, NO DISTRESS NOTED, CALL LIGHT AND FLUID AT BEDSIDE
--- NOTE | 2020-06-27 05:59 | NUR ---
Pt has slept most of this shift. O2 4LNC chronic use, lungs dim at bases w faint exp crackles, IS at bedside. denies SOB when he walks to br and back to bed/chair. 1PSBA/FWW. Tolerating 1800cc fluid restrictions and 2Gr NA diet. turns self in bed, uses call light appropriately, coop. Pt on transitional care status for deconditioning, daily weight. has had no c/o pain or n/v
--- NOTE | 2020-06-27 06:58 | NUR ---
Back to bed after getting up to scale for weight, no c/o pain or n/v. call light at bedside,. O2 4LNC in place, moist productive cough noted at this time, creamy drainage, able to expectorate. no requests fluid restrcition orders in place
--- NOTE | 2020-06-27 07:20 | NUR ---
Got shift report from Alexia MCRAE. Pt was sitting up in bed ordering breakfast this morning, responded to us in greeting and introductions. Pt left sitting in bed, table and call light within reach.
--- NOTE | 2020-06-27 07:22 | NUR ---
THIS RN TO ROOM TO CHECK ON PT. PT UP TO EDGE OF BED TO VOID. PT VOIDS 225 INTO URINAL WITH OUT ISSUE AND INDEPENDANTLY. PT DENIES PAIN AND NAUSEA. PT ASSISTED WITH PLACING BREAKFAST ORDER. NO ADDITIONAL REQUESTS OR COMPLAINTS. CALL LIGHT WITHIN REACH. THIS RN WORKING WITH THOR MILLRE ON ORIENTATION FOR THIS SHIFT. SEE RN NOTE BY PAUL
--- NOTE | 2020-06-27 09:40 | NUR ---
Entered pt room for morning med pass and assessment. Pt was walking in the hallway with Physical Therapy. Physical Therapy commented that the pt walked very capably this morning with his walker and gait belt for safety, but was having soreness in his R knee. Pt reports no pain at this time. Pt took all meds without difficulty. Pt vitals were WNL, see assessment charting. Pt left sitting up in chair, table in front of him, call light within reach.
--- NOTE | 2020-06-27 11:18 | NUR ---
Entered pt room for rounding checks. Pt was sitting upright in the chair with his table in front of him. I reclined him in his chair so he could rest safely. Pt reports no pain or further needs at this time. Pt left reclined in chair with table over his legs and call light within reach.
--- NOTE | 2020-06-27 11:50 | NUR ---
Entered pt room to assist him to stand and use urinal. Pt was able to stand on his own without dizziness or poor balance. Walker placed in front of him for safety. Pt voided 200ml of yellow urine, which was marked on the bathroom board. Pt returned to chair, and began using his I.S. as directed. Pt given a warm blanket for his shoulders. Pt reports no further needs at this time. Pt left reclining in chair with table above his legs and personal items and call light within reach.
--- NOTE | 2020-06-27 12:46 | NUR ---
Entered pt room for 1300 med pass. Pt sitting up in chair finishing his lunch. Pt BP was 137/64 (82) HR 70. Pt able to take med without difficulty. Pt o2sat 100% 4L NC. Pt reports no pain or further needs at this time. Pt left reclining in chair with table above his legs, personal belongings and call light within reach.
--- NOTE | 2020-06-27 13:08 | NUR ---
PT CALL LIGHT ON. PT REQUESTS A WARM PACK, BLANKET AND PILLOW REQUESTED FOR NAP. PROVIDED REQUESTED. WARM PACK PLACED ON LEFT KNEE PER PT PREFERENCE. NO ADDITIONAL REQUESTS OR COMPLAINTS. PT REMAINS UP TO CHAIR. CALL LIGHT WITHIN REACH.
--- NOTE | 2020-06-27 14:22 | NUR ---
Entered pt room and assisted pt with his shower. Pt used walker to move to the bathroom with Susie MCRAE. After pt used the toilet, i assisted him to the shower chair, he used the walker and moved independently, with me there for safety. Pt and I both washed him, he was able to wash his face, chest, and groin. I washed the rest of his body, including shampooing his hair. Used lotion for skin care and applied new gripped socks to his feet and a new gown. Assisted pt back to the chair with his walker. Pt reports no pain or further needs at this time. Declines having his feet elevated. Pt left sitting up in chair with table over his legs, personal items and call light within reach.
--- NOTE | 2020-06-27 14:37 | NUR ---
PATIENT SITTING UP IN CHAIR, BLANKET AROUND SHOULDERS. I&OS CHARTED. CALL LIGHT AND BEDSIDE TABLE WITHIN REACH
--- NOTE | 2020-06-27 15:20 | NUR ---
MEDICATIONS DUE. THIS RN TO BEDSIDE. PT UP TO RESTROOM WITH STAND BY ASSIST AND FRONT WHEEL WALKER. PT VOIDS AND HAS BOWEL MOVEMENT. PT BACK TO CHAIR. VITALS TAKEN. MEDICATIONS GIVEN (SEE MAR). PTS 7-UP REFILLED WITHIN FLUID RESTRICION. PTS DAUGHTER AT BEDSIDE. NO ADDITIONAL REQUESTS OR COMPLAINTS AT THIS TIME. CALL [facility].
--- NOTE | 2020-06-27 17:26 | NUR ---
2PA ASSIST FROM BED TO CHAIR, USING FWW. IN ROOM. PATIENT WAS INCONTINENT OF URINE, CLEAN BRIEF ON. CALL LIGHT IN REACH
--- NOTE | 2020-06-27 17:33 | NUR ---
Entered pt room for rounding. Pt reclining in chair, upright, having dinner. Pt reports no pain or further needs at this time. Table and call light within reach.
--- NOTE | 2020-06-27 18:18 | NUR ---
Entered pt room in response to call light. Removed pt dinner tray for him. Pt reports no pain or further needs at this time. Pt left reclining in chair, table above his legs, call light within reach.
--- NOTE | 2020-06-27 18:49 | NUR ---
Pt is being treated for deconditioning. Pt on swing bed for physical therapy and occupational therapy. Pt showered today 1SBA with walker. Wound on R wrist, covered and wrapped, seemingly from his life-alert band. Pt up to chair for all meals and most of the day. Some L knee soreness post physical therapy, hot packs to tx. Void quantity sufficient. Pt uses call light appropriately.
--- NOTE | 2020-06-27 19:10 | NUR ---
pt called from the restroom, asstd with pt hansa, sba/fww pt to the chair, pt has feet up, blanket on, call light is in place, bed side table is in place, will get a heatpack for pt, no further requests at this time
--- NOTE | 2020-06-27 19:34 | NUR ---
pt continoues on transitional care status. O2 4L NC in place, Up in chair, legs elevated, no requests, no c/o pain or n/v. tolerating fluids restriction and diet well.
--- NOTE | 2020-06-27 20:30 | NUR ---
sba fww pt to walk down the santoyo and bk to , rn provided o2 tank, took pt vitals, i&os are done, pt is up in chair with feet up, call light in place, bedside table in place, blanket provided, no further requests at this time, rn in for assesment
--- NOTE | 2020-06-27 20:50 | NUR ---
pt walked down to s[address] and up, back to room, O2 4L in place, sats on return 95, r18, no sob, no distress, tolerated very well, back to chair
--- NOTE | 2020-06-27 22:12 | NUR ---
PT BACK TO BED FROM CHAIR, O2 4LNC IN PLACE, CALL LIGHT AT BEDSIDE, TOLERATING FLUID RESTRICTION WLL
--- NOTE | 2020-06-28 02:10 | NUR ---
Resting, eys closed, O2 in place, no resp distress, turns self in bed. used urinal, voiding QS. call light at bedside
--- NOTE | 2020-06-28 04:32 | NUR ---
pt on transitional care, resting, turns self in bed, no distress, on 4L NC, call light at bedside, uses urinal
--- NOTE | 2020-06-28 04:34 | NUR ---
Pt called that h"I have a problem" stated, Pt had a alrge amount of semiliquid bm in bed, skin care done. Up to bsc. has voided QS urine, passing gas and bm at the same time. Ofelia
--- NOTE | 2020-06-28 05:29 | NUR ---
PT AWAKES EASILY, SLEPT. O2 4LNC CHRONIC, UP W 1PSBA AND FWW, WALKED HALLWAY X1, TOLERATED VERY WELL, NO SOB NOTED, TOLERATING 1800CC FLUID RESTRICTION WELL. ALERT AND ORIENTED, COOPERATIVE. LIKE HOT PADS TO BACK AND KNEES. DENIES NEED OPFR PAIN MEDS, WORKING WITH PT/OT. USES CALL LIGHT APPROPRIATELY, CONTINUES ON TRANSITIONAL CARE STATUS
--- NOTE | 2020-06-28 08:02 | NUR ---
PT UP TO THE CHAIR WITH MORNING MEAL. CALL LIGHT IN REACH, [place] TOAST CUT UP PER REQUEST, OTHER ITEMS PREPARED. PT DENIES FURTHER NEEDS OF.
--- NOTE | 2020-06-28 09:18 | NUR ---
PATIENT RESTING IN CHAIR. MORNING MEDS GIVEN. PHYSICAL THERAPY IN. PATIENT DENIES PAIN.
--- NOTE | 2020-06-28 10:43 | NUR ---
PATIENT WATCHING TV IN CHAIR. ASSESSMENT COMPLETE. PATIENT STATES HE IS COMFORTABLE AND DENIES PAIN. PATIENT STATES HE ORDERED LUNCH. NO REQUESTS AT THIS TIME. CALL LIGHT WITHIN REACH.
--- NOTE | 2020-06-28 12:46 | NUR ---
PATIENT SLEEPING IN CHAIR. RESPIRATIONS REGULAR AND UNLABORED ON 3.5 L NC.
--- NOTE | 2020-06-28 13:13 | NUR ---
PATIENT UP TO TOILET WITH WALKER. PATIENT REQUESTS TIME. PATIENT INSTRUCTED TO PULL CORD FOR HELP WHEN FINISHED.
--- NOTE | 2020-06-28 15:06 | NUR ---
patient sleeping sitting up in chair. awakens upon my entering room. patient denies pain. patient expresses concern over not having enough bowel movement today. patient encouraged to drink more water. patient states preference of room temp water and takes 2 sips. no further requests at this time.
--- NOTE | 2020-06-28 15:49 | NUR ---
PATIENT AWAKENS UPON MY ENTERING ROOM. PATIENT IN CHAIR. MEDS GIVEN. PATIENT WATER FILLED. RESPIRATIONS REGULAR AND UNLABORED. NO FURTHER REQUESTS.
--- NOTE | 2020-06-28 17:56 | NUR ---
patient resting in chair watching tv. pt reports soreness in right knee but declines pain medication. patient drowsy but states isn't ready to get into bed yet. no further requests at this time.
--- NOTE | 2020-06-28 19:30 | NUR ---
SHIFT REPORT FROM NURSE JUAN AND NURSE STACY. PT UP IN CHAIR, ALERT AND WATCHING TV. PT'S DAUGHTER WAS IN ROOM AND LEFT DURING SHIFT REPORT. PT'S DAUGHTER HAD QUESTIONS RE: BP MEDS. NO FURTHER NEEDS AT THIS TIMEE.
--- NOTE | 2020-06-28 20:10 | NUR ---
provided pt fresh water, recorded 300 intake on I&O sheet, rounded with rn abt previous task, call light in place, no further requests, pt is up in chair at this time,
--- NOTE | 2020-06-28 22:05 | NUR ---
IN ROOM TO DO VITALS AND GIVE EVENING MEDS. PT WOULD LIKE TO STAY UP IN CHAIR UNTIL 2229. PT HR WAS 44 BPM SO HYDRALAZINE HELD PER PARAMETERS. VS OTHERWISE STABLE. PT REQUESTS MORE KLEENEX WHICH IS PROVIDED. NO FURTHER REQUESTS AT THIS TIME.
--- NOTE | 2020-06-28 23:12 | NUR ---
ASSESSMENT COMPLETE. PT WAS ON TOILET AND REPORTS GAS BUT NO BM. PT HAD A SMEAR WHILE WIPING. PT DID ORAL CARE AT SINK AND THEN WAS ASSISSTED TO BED. CALL LIGHT PLACED WITHIN REACH AND ENCOURAGED PT TO CALL FOR ASSISTANCE. NO FURTHER NEEDS AT THIS TIME.
--- NOTE | 2020-06-29 01:29 | NUR ---
ROUNDS COMPLETED. PT IN BED LAYING RIGHT LATERAL WITH EVEN UNLABORED BREATHING. NO APPARENT SIGNS OF DISTRESS
--- NOTE | 2020-06-29 01:50 | NUR ---
CALL LIGHT ANSWERED. PT REQUESTS HELP TO GET "BACK IN BED". PT WAS SITTING AT BEDSIDE. STATES HE JUST SAT UP "FOR AWHILE" AND WANTS TO LAY BACK DOWN. HELPED PT BACK INTO LAYING POSITION. NO FURTHER NEEDS AT THIS TIME. BEDSIDE TABLE AND CALL LIGHT WITHIN REACH.
--- NOTE | 2020-06-29 02:45 | NUR ---
CALL LIGHT ANSWERED. PT REQUESTS HELP TO CLEAN UP BED. SMALL STOOL SMEAR ON BED. PT BROUGHT TO TOILET TO CLEAN UP DEPENDS. ONLY SMALL SMEAR IN DEPENDS WELL. PT CLEANED AND NEW DEPENDS PUT ON. PT RETURNED TO BED. NO FURTHER NEEDS AT THIS TIME.
--- NOTE | 2020-06-29 04:55 | NUR ---
ROUNDS COMPLETE. PT SLEEPING WITH EVEN UNLABORED BREATHING. LAYING RIGHT LATERAL. NO APPARENT SIGNS OF DISTRESS.
--- NOTE | 2020-06-29 06:15 | NUR ---
came into pt rm with standing scale, putting in I&Os, emptied urinal, sba pt to stand on scale for weight, bk now back into bed, fresh water given, no further requests at this time
--- NOTE | 2020-06-29 06:43 | NUR ---
PT SLEPT WELL THIS SHIFT. HYDRALAZINE WAS HELD AT 2100 D/T HR 44 BPM. PT MAINTAINS HIGH 90S SPO2 ON 3.5L PER NC. PT IS CONCERNED ABOUT BOWEL MOVEMENT. PT HAD JUST SMEARS TWO TIMES THIS SHIFT. PT CALLS APPROPRIATELY.
--- NOTE | 2020-06-29 08:04 | NUR ---
Pt resting in bed, eyes closed, respirations even and non labored. Pt has no notable distress. Personal supplies and call light within reach.
--- NOTE | 2020-06-29 09:16 | NUR ---
PT IN BED ASLEEP ON BEDSIDE RECLINER WITH DAUGHTER AT BEDSIDE. PT STATES THAT HE'S TIRED HE KEPT WAKING UP LAST NIGHT. DAUGHTER MENTIONS THAT HE DOES LOOK TIRED COMPARED TO HOW HE NORMALY IS. APICAL PULSE HAD TO BE TAKEN BEFORE ADMINISTERING HYDRALAZINE. PULSE WAS 53 OBTAINED WHICH WAS WITHIN PARAMETERS. DR BAIRES WAS NOTIFIED AND STATED IT WAS FINE TO GIVE THE MEDICATION. PT WAS LEFT IN BEDSIDE RECLINER TO SLEEP. CALL LIGHT IS WITHIN REACH, DAUGHTER IS IN ROOM. WILL CONTINUE TO MONITOR THE PT.
--- NOTE | 2020-06-29 09:56 | NUR ---
CALL LIGHT ANSWERED. PATIENT SITTING UP IN CHAIR. VISITOR IN ROOM. PATIENT GOES TO USE THE BATHROOM. ONE PERSON ASSISTING WITH WALKER. CALL LIGHT WITHIN REACH. NO OTHER NEEDS AT THIS TIME
--- NOTE | 2020-06-29 10:20 | NUR ---
Attempted to see pt., pt sleeping. Note on door shows "nap time".
--- NOTE | 2020-06-29 10:27 | NUR ---
CALL LIGHT ANSWERED. PATIENT USING THE BATHROOM. DAUGHTER IN ROOM. PATIENT BACKS TO CHAIR. ONE PERSON ASSISTING WITH WALKER. CALL LIGHT WITHIN REACH. NO OTHER NEEDS AT THIS TIME
--- NOTE | 2020-06-29 10:30 | NUR ---
PATIENT IN BED RESTING WITH EYES CLOSED. PATIENT ASKED TO NOT BE DISTURBED SO HE COULD SLEEP. CALL LIGHT IN REACH. NO FURTHER NEEDS AT THIS TIME.
--- NOTE | 2020-06-29 11:46 | NUR ---
PT USED CALL LIGHT TO ASK FOR A BAG TO SPIT IN. PT ALERT AND AWAKE SITTING ON BEDSIDE RECLINER. AFTER GETTING HIM THE BAG PT DENIED ANY FURTHER NEED. PT STATED TO GIVE HIM SOME TIME TO DECIDE ON LUNCH. CALL LIGHT WITHIN REACH, WILL CONTINUE TO MONITOR THE PT.
--- NOTE | 2020-06-29 11:56 | NUR ---
CALL LIGHT ANSWERED. PATIENT WOULD LIKE TO ORDER HIS LUNCH. PATIENT'S LUNCH ORDERED. CALL LIGHT WITHIN REACH. NO OTHER NEEDS AT THIS TIME
--- NOTE | 2020-06-29 13:03 | NUR ---
PATIENT SITTING IN CHAIR, RN IN ROOM. CALL LIGHT IN REACH. NO FURTHER NEEDS AT THIS TIME.
--- NOTE | 2020-06-29 13:04 | NUR ---
PT AWAKE AT BEDSIDE RECLINER SHAVING WITH HIS ELECTRIC RAZOR. MEDICATION ADMINISTERED, PT STATES NO FURTHER NEEDS AT THIS TIME. WILL CONTINUE TO MONITOR.
--- NOTE | 2020-06-29 14:16 | NUR ---
PT IN BR, WILL CHECK BACK AGAIN
--- NOTE | 2020-06-29 15:11 | NUR ---
PT USED CALL LIGHT. PT SITTING IN RECLINER, AWAKE. PT HAD DROPPED ONE OF HIS ITEMS ONTO THE FLOOR WHICH WAS PICKED UP. PT REPORTS NO FURTHER NEEDS AT THIS TIME. WILL CONTINUE TO MONITOR THE PT. CALL LIGHT LEFT WITHIN REACH.
--- NOTE | 2020-06-29 15:27 | NUR ---
PT SITTING IN BEDSIDE RECLINER, MEDICATIONS ADMINISTERED. APICAL HR WAS 53 BPM. OXYGEN FLOWING AT 3.5L NC. PT STATES NO FURTHER NEEDS AT THIS MOMENT. WILL CONTINUE TO MONITOR THE PT.
--- NOTE | 2020-06-29 16:57 | NUR ---
Certified Heart Failure Nurse Note: PCP:New Mr Ravi is currently in transitional care program. Echocardiogram completed past hospital stay EF 55%. Social support system: daughter Amanda. See executive vice president and chief operating officer notes Weight monitoring: Scale present in home but does not currently weigh daily. Discussed how to weigh daily/ when to notify PCP. Diet: Daughter has been doing the cooking and shopping. Patient states she pays very close attention to salt and fat content. Briefly reviewed fats that are heart healthy. Rational for lower sodium diet explained. Alternatives to flavor food advised. He enjoys cottage cheese, recommended small portions due to salt content. Medication routine: Does own 7 day pill reminder and he denies problems taking medications or obtaining medications. Advanced directive: Not discussed at this initial visit Barriers to self-care include: Deconditioning. Follow-up plans: Will contact daughter to ensure she has heart failure information packet and to answer any HF specific questions she may have.
--- NOTE | 2020-06-29 17:41 | NUR ---
PATIENT SITTING UP IN CHAIR RESTING, EYES CLOSED, RESPIRATIONS EVEN AND NON LABORED. PT HAS NO NOTABLE DISTRESS. PERSONAL SUPPLIES AND CALL LIGHT WITHIN REACH.
--- NOTE | 2020-06-29 18:09 | NUR ---
PATIENT IN CHAIR WATCHING TV. 7-UP GIVEN. CALL LIGHT IN REACH. NO FURTHER NEEDS AT THIS TIME.
--- NOTE | 2020-06-29 19:48 | NUR ---
REPORT RECEIVED FROM DAY SHIFT RN. PT SITTING IN RECLINER RESTING WITH EYES CLOSED. RR EVEN AND UNLABORED. NO DISTRESS NOTED. CALL LIGHT WITHIN REACH. WHITE BOARD UPDATED.
--- NOTE | 2020-06-29 20:45 | NUR ---
EVENING ASSESSMENT COMPLETE. SCHEDULED MEDS ADMINISTERED PER EMAR. HR AUSCULTATED AT 45 BPM, HYDRALAZINE HELD FOR HR >50. PT DENIES PAIN OR NAUSEA. NO C/O SOB OR CP. O2 4L/NC IN PLACE. NEW HUMIDIFIER PLACED. UP TO BR WITH SBA TO HAVE BM. PT REFUSES WALKER. GAIT STEADY AND SLOW. BACK TO RECLINER, TENISHA WELL. NO FURTHER NEEDS. CALL LIGHT IN REACH.
--- NOTE | 2020-06-29 22:20 | NUR ---
CALL LIGHT ANSWERED. SBA TO RESTROOM FOR VOID AND SMALL BM. pt ASSISTED WITH DENTURES. BACK IN BED. CALL LIGHT IN REACH. LIGHTS OFF IN ROOM.
--- NOTE | 2020-06-29 22:59 | NUR ---
CALL LIGHT ANSWERED. SBA TO BED. PT TENISHA WELL. NO C/O SOB. BED ALARM FOR SAFETY.
--- NOTE | 2020-06-30 00:05 | NUR ---
CALL LIGHT ON. pt REQUESTED ASSISTANCE "TUCKING" IN TO BED. ASSISTANCE PROVIDED. CALL LIGHT WITHIN REACH. BED ALARM ON.
--- NOTE | 2020-06-30 05:19 | NUR ---
CALL LIGHT ANSWERED. PT REQUESTING WARM BLANKET. DAILY WEIGHT OBTAINED. SCHEDULED MEDS ADMINISTERED PER EMAR. PT DENIES PAIN OR SOB. O2 4L/NC IN PLACE. RESPIRATIONS EVEN AND UNLABORED. NO FURTHER NEEDS. CALL LIGHT IN REACH.
--- NOTE | 2020-06-30 06:10 | NUR ---
CALL LIGHT ANSWERED. PT UP TO TOILET TO VOID. SBA WITHOUT FWW. PT AMBULATED WELL. PT RETURNED BACK TO BED. NO FURTHER NEEDS AT THIS TIME.
--- NOTE | 2020-06-30 07:18 | NUR ---
REPORT RECEIVED FROM THOR ERICKSON. PT RESTING IN BED WITH OXYGEN TUBING OFF. PT STRUGGLING TO PLACE OXYGEN TUBING BACK ON FACE. PT ASSISTED. O2 AT 93% ON 4L O2 BY NC. PT DENIES PAIN AND NAUSEA STATING HE WOULD LIKE TO REST A LITTLE LONGER BEFORE BREAKFAST. NO ADDITIONAL REQUESTS OR COMPLAINTS. CALL LIGHT WITHIN REACH. BED RAILS UP. BED ALARM ON.
--- NOTE | 2020-06-30 09:10 | NUR ---
MORNING ASSESSMENT AND MEDICATION DUE. PT UP IN ROOM WORKING WITH OCCUPATIONAL THERAPY TO GET DRESSED IN CLOTHES FROM HOME AND DO MORNING CARES. PT ABLE TO DRESS SELF WITH MINIMAL ASSITANCE AND PERFORMES ORAL CARE AND MORNING CARES WITH STAND BY ASIST. PT REPORTS CONSTIPATION STATING "I WANT THAT DOCULAX STUFF." PT NOTED TO HAVE HAD MULTIPLE BOWEL MOVEMENTS. ORDERED MEDICATIONS FOR CONSTIPATION GIVEN. WITH DUCATION PT STATES "MAYB ITS JUST A OF GAS." ASSESSMENT DONE. PT REPORTS SELLING TO LOWER EXTREMITIES HAS IMPROVIED. +1 EDEMA NOTED TO RIGHT ANKLE. PT REMAIS ON 4L O2 BY NC WITH O2 SATURATIONS ABOVE 92%. I.S. USE PROMPTED BY THIS N. PT REAES 1000ML. CASE MANGEMENT TO BEDSIDE TO DICUSS PLAN WITH PT. PT VERBALIZES UNDERSTANDING OF PLAN OF CARE. PT UP TO CHAIR, RESTING WITH EYES CLOSED. NO ADDITIONAL REQUESTS OR COMPLAINTS. CALL LIGHT WITHIN REACH. CHAIR ALARM ON.
--- NOTE | 2020-06-30 10:08 | NUR ---
PATIENT UP AMBULATING IN HALLWAY WITH PT. DIANANS CHANGED.
--- NOTE | 2020-06-30 10:20 | NUR ---
Spoke with Trav. Ask how he feels about TC program and if he is meeting his goals. He states he has improved, but remains tired after walking. Discussed goal by daughter for him to walk into Dr's office and onto a plane. He states he doesn't need to get on a plane. I reminded him of our converstation where he wanted to go to [place], he states he doesn't really have an interest as his can no longer go with him. Rn and RT were in the room. They begin asking him questions about hot weather, and he states he really does not like the cold. He states he can stay out of the cold in his home. He states he is able to walk from his room to the PT room. He is proud of this. Will discuss with daughter if she feels he is meeting goals or would like to add goals at this time.
--- NOTE | 2020-06-30 10:49 | NUR ---
THIS RN TO ROOM TO CHECK ON PT. PT UP WITH PHYSICAL THERAPY. PT REPORTS MILD "SORE" KNEES AND DENIES NEED FOR MEDICATION A THIS TIME. PT DENIES ADDITIONAL REQUESTS OR COMPLAINTS AT THIS TIME.
--- NOTE | 2020-06-30 12:33 | NUR ---
THIS RN TO ROOM TO CHECK ON PT. PT UP TO CHAIR, EATING LUNCH. PT DENIES PAIN AND NAUSEA. PT STATES "I'M FEELING GOOD TODAY." MEDICATION GIVEN. 7-UP PROVIDED PER PT PREFERENCE WITHIN FLUID RESTRICTION. NO ADDITIONAL REQUESTS OR COMPLAINTS. CALL LIGHT WITHIN REACH. CHAIR ALARM ON.
--- NOTE | 2020-06-30 14:03 | NUR ---
PATIENT CALLED INSTALLER INSPECTOR FINAL SYSTEM FROM IN BATHROOM, WENT INTO ROOM AND PATIENT WANTED TO TALK TO NURSE ABOUT A LAXATIVE, RN NOTIFIED. PATIENT NOW TO CHAIR, SBTyrone FWW. CALL LIGHT IN REACH. NO FURTHER NEEDS AT THIS TIME.
--- NOTE | 2020-06-30 14:04 | NUR ---
PT REPORTS TO HOTEL VALET ATTENDANT THAT HE DOESN'T WANT TO GET OF THE TOILET UNTIL HE HAS A BOWEL MOVEMENT. THIS RN TO ROOM. PT AGREES TO GET BACK TO CHAIR AND TALK ABOUT HIS CONCERNS. 1PERSON ASSIST, FRONT WHEEL WALKER UP TO CHAIR. PT REPORTS HE FEELS THAT HIS BOWEL MOVEMENT ARE DIFFERENT "THEY ARE SOFT AND NOT BIG USUAL. JUST A FEW SMALL ONES IN THE DAY." PT ENCORUAGED THAT HE IS RECEIVEING LAXITIVES AND PT AGREES THAT HE DOES NOT FEEL CONSTIPATED. PT ENCORUAGED TO AMBULATE. PHYSICAL THERAPY TO BEDSIE TO AMBULATE WITH PT. PT STATES HIS CONCERNS HAVE BEEN ADDRESSED. NO ADDITIONAL REQUESTS OR COMPLAINTS. PT AMBULATING WITH PHYSICAL THERAPY.
--- NOTE | 2020-06-30 14:40 | NUR ---
PT SITTING IN CHAIR, DOZING ON AND OFF. PT HAD HARD TIME FOCUSING ON CONVERSATION, SAID HE WOULD LIKE TO REST AND TO COME BACK LATER. GAVE BLESSING AND WILL RETURN
--- NOTE | 2020-06-30 14:41 | NUR ---
PT IN TRANSITIONAL CARE PROGRAM FOR DECONDITIONING. PT UP WITH PHYSICAL THERAPY, 1 PERSON ASSIST AND FRONT WHEEL WALKER THIS SHIFT. PT TOLERATING 2 GRAM SODIUM DIET WITH GOOD APPITITTE. PT EXPRESSES CONCERNS ABOUT CONSTIPATION THIS SHIFT, EDUCATION DONE, MEDICATION GIVEN, AMBULATION ENCOURAGED. I.S. USE ENSURED. PT REMAINS ON 4L O2 PER BASELINE CHRONIC USE. EDEMA TO LOWER EXTREMITIES IMPROVING. PT TOELRATING 1800ML FLUID RESTRICTION WELL. UP TO CHAIR FOR MOST OF THIS SHIFT. PT VOIDING QUANTITY SUFFICIENT. PT USES CALL LIGHT APPROPRIATLY.
--- NOTE | 2020-06-30 14:56 | NUR ---
PT FINISHED WITH PHYSICAL THERAPY. MEDICATION DUE. PT UP TO CHAIR. PT DENIES FEELINGS OF CONSTIPATION. HEAT PACK OFFERED. PT DECLINES AT THIS TIME. I.S. USE DEMONSTRATED. PT REACHES 1000ML. VITALS TAKEN. MEDICAITON GIVEN. NO ADDITIONAL REQUESTS OR COMPLAINTS AT THIS TIME. CALL LIGHT WITHIN REACH.
--- NOTE | 2020-06-30 16:50 | NUR ---
THIS RN TO ROOM TO CHECK ON PT. PT UP TO CHAIR EATING DINNER. PT DENIES PAIN AND NAUSEA. 1 PERSON ASSIST, FRONT WHEEL WALKER UP TO VOID AND BACK TO CHAIR. NO ADDITIONAL REQUESTS OR COMPLAINTS AT THIS TIME. CALL [facility].
--- NOTE | 2020-06-30 18:02 | NUR ---
PATIENT IN CHAIR, DAUGHTER IN ROOM. CALL LIGHT IN REACH. NO FURTHER NEEDS AT THIS TIME.
--- NOTE | 2020-06-30 18:30 | NUR ---
THIS RN TO ROOM TO CHECK ON PT. PT UP TO CHAIR. URINAL EMPTIED. PT DENIES PAIN AND NAUSE. PT DENIES REQUESTS OR COMPLAINTS AT THIS TIME. PTS DAUGHTER AT BEDSIDE. CALL [facility].
--- NOTE | 2020-06-30 20:10 | NUR ---
ASSISTED PATIENT CHANGED DAY CLOTHES TO NIGHT GOWN. DENTURES ARE SOAKED IN HE CONTAINER WITH CLEANSER. PATIENT WANTING TO SIT BY THE BED, STATED NO READY TO LAY DOWN YET. CALL LIGHT WITHIN REACH.
--- NOTE | 2020-06-30 20:15 | NUR ---
CALL LIGHT ON. pt REQUESTED LIQUIDS, EDUCATED ON FLUID RESTRICTION. ASSESSMENT DONE. HR IRREGULAR, APICAL TAKEN. MEDICATIONS GIVEN (SEE MAR). LABORATORY TECH IN ROOM TO ASSIST WITH PM CARES.
--- NOTE | 2020-06-30 20:42 | NUR ---
V/S AND I&O TAKEN AND RECORDED. SIDE TABLE WITHIN REACH.
--- NOTE | 2020-06-30 21:32 | NUR ---
ANSWERED CALL LIGHT. SBA TO THE BATHROOM AND BACK TO BED. PATIENT STILL WANTING TO SIT BY THE BED. CALL LIGHT WITHIN REACH.
--- NOTE | 2020-06-30 22:28 | NUR ---
PT REQUESTED ASSISTANCE GETTING INTO BED. HE WAS SITTING AT EDGE OF BED, HELPED HIM GET HIS LEGS IN BED AND COVERED UP. TV AND LIGHTS ARE NOW OUT AND CALL LIGHT IS CLOSE. PT DENIES FURTHER NEEDS AT THIS TIME.
--- NOTE | 2020-07-01 01:00 | NUR ---
ROUNDED ON pt. RESTING IN BED. NO REQUESTS AT THIS TIME. CALL LIGHT WITHIN REACH.
--- NOTE | 2020-07-01 03:13 | NUR ---
ROUNDED ON pt. STANDING AT THE BEDSIDE USING URINAL. NO REQUESTS AT THIS TIME.
--- NOTE | 2020-07-01 03:31 | NUR ---
CALL LIGHT ON. EMPTIED URINAL. NO OTHER REQUESTS AT THIS TIME. CALL LIGHT WITHIN REACH. pt RESTING IN BED.
--- NOTE | 2020-07-01 05:58 | NUR ---
IN TO GET pt WEIGHT. RECORDED. NO REQUESTS AT THIS TIME. ROOM TIDIED. CALL LIGHT WITHIN REACH. pt RESTING IN BED WITH EYES CLOSED.
--- NOTE | 2020-07-01 06:03 | NUR ---
pt RESTED ON AND OFF DURING SHIFT. SBA FWW. NO IV. TOLERATING 2GM SODIUM DIET AND FLUID RESTRICTION. USES CALL LIGHT APPROPRIATELY.
--- NOTE | 2020-07-01 07:29 | NUR ---
REPORT RECEIVED FROM THOR NORMAN. PT RESTING ON RIGHT SIDED WITH EYES CLOSED. RESPIRTIONS EVEN AND UNLABORED. BED RAILS UP. CALL LIGHT WITHIN REACH. PT ALLOWED TO REST. THOR MILLER ASSUMING CARE OF PT WITH ASSISTANCE FROM THIS RN. SEE RN NOTE BY PAUL.
--- NOTE | 2020-07-01 07:40 | NUR ---
Got report from maintenance technician 3rd shift RN. Pt was appearing asleep in his bed during report. Pts breathing appeared regular and unlabored. Bedside report indicated no real changes in status throughout the evening. Pt is swing bed. Pt left laying on his side, side rails up, call light within reach.
--- NOTE | 2020-07-01 07:47 | NUR ---
PATIENT ASLEEP AND WHITE BOARD UPDATED. CALL LIGHT WITHIN REACH. NO FURTHER NEEDS AT THIS TIME.
--- NOTE | 2020-07-01 09:30 | NUR ---
MORNING ASSESSMENT AND MEDICATION DUE. PT UP TO CHAIR, FINISHED WITH BREAKFAST. PT RESTING IWTH EYES CLOSED. RESPIRATIONS EVEN AND UNLABORED. PT AWAKENS TO VOICE. PT REPORTS FEELING "TIRED" THIS MORNING. PT STATES HE DID SLEEP WELL LAST NIGHT BUT "JUST NEED ANOTHER NAP." ASSESSMENT DONE. MEDICATIONS GIVEN. LINENS CHANGED. I.S. USE DRMONSTRATED, PT ABLE TO REACH 1000ML. BLOOD PRESSURE NOTED TO BE 108/59, MD CONSULTED REGARDING HYDRALAZINE DOSE, DOSE HELD PER MD VERBAL ORDER, HYDRALAZINE ORDERS ALTERED. PT REPORTS FEELIGN CHILLY. AGREES TO A SHOWER "THIS AFTERNOON ONCE IT WARMS UP." WARM BLANKETS PROVIDED. NO ADDITIONAL REQUESTS OR COMPLAINTS. CALL LIGHT WITHIN REACH.
--- NOTE | 2020-07-01 10:45 | NUR ---
HEART FAILURE NURSE: Attempted to see patient again for follow up to discussion. He was busy working with PT. Daughter was not in room.
--- NOTE | 2020-07-01 11:01 | NUR ---
THIS RN TO ROOM TO CHECK ON PT. PT UP TO CHAIR FINISHED WITH PHYSICAL THERAPY. PT REPORTS FEELING CRANKY TODAY AND TIRED. PT ANTICIPATING OCCUPATIONAL THERAPY "I HAVE TO GET DRESSED WITH THEM." PT DENIES REQUESTS OR COMPLAINTS. RESPIRATIONS EVEN AND UNLABORED. CALL LIGHT WITHIN REACH. PTS DAUGHTER AT BEDSIDE.
--- NOTE | 2020-07-01 11:45 | NUR ---
Spoke with Juan Diego and his daughter. She is very happy with his progress. She would like to take him to get his toe nails cared for tomorrow. Dr. Mai notified and in agreement, Transitional Care Tempoorary absence form given for daughter to complete. She feels this will be a good trial to see how pt's does out of the hospital. She states the only other goal she would like pt to work on, is to walk to the bathroom on his own. She feels he will need to do this at home. Informed I will notify the nurses and PT. Pt states he is doing well, tired as he was awakened for vs during the night. I updated the monorail charger operator and she states he did not have any vs during the night. She will speak with the daughter.
--- NOTE | 2020-07-01 12:08 | NUR ---
THIS RN TO ROOM TO CHECK ON PT. PT ASSITED WITH PLACING LUNCH ORDER. EDUCATION DONE WITH PT REGARDING CHOOSING SOUP FOR LUNCH. PT VERBALIZES UNDERSTANDING AND STATES HE WANTS SOUP ANYWAY. PT DRESSED AND REPORTS OCCUPATIONAL THERAPY "WENT REALLY WELL." NO ADDITIONAL REQUESTS OR COMPLAINTS. PT READING NEWS PAPER. CALL LIGHT WITHIN REACH.
--- NOTE | 2020-07-01 13:01 | NUR ---
MEDICATION DUE. THIS RN TO ROOM. PT UP TO CHAIR FINISHING LUNCH. PTS ANKLES NOTED TO HAVE INCREASED SWELLING, +2 EDEMA IN RIGHT ANKLE AND +1 IN LEFT ANKLE. EDUCATION DONE WITH PT REGARDING KEEPING FEET ELEVATED. PT AGREES TO ELEVATE FEET. I.S. USE DEMONSTRATED, PT REACHES 1000ML. PT WITHIN FLUID RESTRICIONS. PT DENIES PAIN AND NAUSEA. NO ADDITIONAL REQUESTS OR COMPLAINTS AT THIS TIME. CALL LIGHT WITHIN REACH. DAUGHTER AT BEDSIDE.
--- NOTE | 2020-07-01 14:46 | NUR ---
patient took a shower. new gown put on. sitting in chair. no other needs at this time
--- NOTE | 2020-07-01 15:15 | NUR ---
THIS RN TO ROOM TO CHECK ON PT. PT FINISHED WITH SHOWER AND UP TO CHAIR. PT REPORTS "IT WAS REALLY NICE TO SHOWER." PT ASSISTED WITH PLACING DINNER AND BREAKFAST ORDER. SWELLING CONTINUES IN ANKLES. MD UPDATED ON PTS CONDITION. NO NEW ORDERS AT THIS TIME. PT DENIES ADDITIONAL REQUESTS OR COMPLAINTS AT THIS TIME. CALL LIGHT WITHIN REACH. DAUGHTER AT BEDSIDE.
--- NOTE | 2020-07-01 15:58 | NUR ---
MEDICATION DUE. THIS RN TO ROOM. PT UP TO CHAIR. OXYGEN TUBING NOT IN PLACE. PT STATES HE WAS BLOWING HIS NOSE AND FORGOT TO PUT IT BACK IN PLACE. OXYGEN REPLACED TO FACE, O2 AT 4L BY NC, OXYGEN SATURATION NOW 96%. MEDICATION GIVEN. I.S. USE DEMONSTRATED, PT REACHES 1000ML. PT READING PAMPHLET ON PHYSICAL THERAPY ACTIVITIES. PT ENCORUAGED TO USE EXERCISE BAND WITH ACTIVITIES. PT STATES "OK, AFTER I FINISH READING." NO ADDITIONAL REQUESTS OR COMPLAINTS. CALL LIGHT WITHIN REACH. DAUGHTER AT BEDSIDE.
--- NOTE | 2020-07-01 15:59 | NUR ---
Called and spoke with Leah at the [facility]. Informed may need to cancel or delay transport tomorros. She just asks I call first thing in the morning and let her know.
--- NOTE | 2020-07-01 17:08 | NUR ---
PT IN TRANSITIONAL CARE PROGRAM FOR DECONDITIONING AFTERCHF EXCERBATION. PT TOLREATED PHYSICAL THERAPY, TIME UP TO CHAIR, AND SHOWER THIS SHIFT WITH 1 PERSON ASSIST AND FRONT WHEEL WALKER. PT TOELRATING 2 GRAM SODIUM DIET AND FLUID RESTRICITON WITH GOOD APPITITE. INCREASING PITTING EDEMA (NOW +1-+2) TO RIGHT AND LEFT ANKLES. MD AWARE. REMAINS ON CHRONIC 4L O2 BY [place] WITH O2 SARTURAIONS ABOVE 92%. SHOWER THIS SHIFT. DAILY WEIGHT ORDER DC'D. PT VOIDING QUANTITY SUFFICIENT. FAMILY AT BEDSIDE THROUGHOUT SHIFT. PT USES CALL LIGHT APPROPRATILY.
--- NOTE | 2020-07-01 18:07 | NUR ---
THIS RN TO ROOM TO CHECK ON PT. PT FOUND UP IN RESTROOM. OXYGEN IN PLACE. FALL PRECAUTIONS REVIEWED WITH PT. PT VERBALIZES UNDERSTANDING AND DEMONSTRATES USE OF CALL LIGHT. PT ASSISTED WITH NIKHIL CARE. FRESH DEPENDS IN PLACE. WARM BLANKETS PROVIDED. NO ADDITIONAL REQUESTS OR COMPLAINTS AT THIS TIME. PT FINISHING DINNER. CHAIR ALARM IN PLACE. CALL LIGHT WITHIN REACH.
--- NOTE | 2020-07-01 19:18 | NUR ---
IN ROOM FOR REPORT, PT IS SITTING IN CHAIR WITH EYES CLOSED, RR IS EVEN AND NONLABORED ON 02. CALL LIGHT IS CLOSE AND CHAIR ALARM IS ON.
--- NOTE | 2020-07-01 19:32 | NUR ---
asst pt to move bedside table away from chair, no further requests at this time,
--- NOTE | 2020-07-01 19:58 | NUR ---
pt called to get up to the toilet, sba to the toilet, pt requested to 'sit on the toilet awhile', pt is comfortable pulling the call string, will call when ready,
--- NOTE | 2020-07-01 20:09 | NUR ---
checked on pt, pt still needed time on the toilet
--- NOTE | 2020-07-01 20:22 | NUR ---
pt called to get off the toilet, sba while pt compeleted pm oral care, sba pt bk to the chair, pt requested to sit in chair for more time, pt is watching tv at this time, call light and bedside table in reach, chair alarm is set
--- NOTE | 2020-07-01 21:35 | NUR ---
PT CALLED FOR ASSISTANCE BACK TO BED FROM CHAIR. ADMINISTERED HIS EVENING MEDICATIONS FIRST. HE DENIES PAIN AT THIS TIME AND STILL HAS SOME EDEMA IN ANKLES/FEET MORE SO IN RT ANKLE. PT DENIES N/T. PT DENIES FURTHER NEEDS AT THIS TIME. WARM BLANKET PROVIDED. CALL LIGHT IS CLOSE AND BED ALARM IS ON.
--- NOTE | 2020-07-01 22:16 | NUR ---
pt sat on egde of bed, attemped to void into urinal, pt is bk in bed now, call light in place, bed alarm reset (least sensitivity) to alow pt to bed on edge, no further request at this time
--- NOTE | 2020-07-01 22:24 | NUR ---
SAW PULSE AT SHIFT CHANGE WAS 45. TOOK RADIAL PULSE OVER 1 MIN. HR IS 47. PT DENIES SYMPTOMS AND REVIEW OF CHART SHOWS PT'S PULSE HAS BEEN IN THE 40'S MULTIPLE TIMES. DISCUSSED WITH MEAT CUTTERTHOR WEST WELL. WILL CONTINUE TO MONITOR.
--- NOTE | 2020-07-01 22:57 | NUR ---
pt called to get up to the restroom, sba, gave pt time, will call when ready to get back to bed
--- NOTE | 2020-07-01 23:02 | NUR ---
checked on pt, pt stil working on it, gave pt some more time
--- NOTE | 2020-07-01 23:10 | NUR ---
sba pt to bed, pt is resting now, call light in place, bed alarm reset, no further request from pt
--- NOTE | 2020-07-01 23:50 | NUR ---
PT IS RESTING WITH EYES CLOSED, RR IS EVEN AND NONLABORED. CALL LIGHT IS CLOSE AND BED ALARM IS ON.
--- NOTE | 2020-07-02 01:00 | NUR ---
pt set off bed alarm, needed up to the toilet, sba fww, pt wanted to sit for a while, checked on pt, pt later called once ready, pt is bk in bed at this time, call light in place, bed alarm set
--- NOTE | 2020-07-02 01:02 | NUR ---
ASSISTED PT TO RESTROOM SBA W/FWW. HE WANTS TO SIT FOR A WHILE AND WILL PULL THE CALL STRING WHEN DONE.
--- NOTE | 2020-07-02 01:50 | NUR ---
pt called, requested to get one blanket off, helped pt, pt is resting now, no further requests
--- NOTE | 2020-07-02 03:30 | NUR ---
PT IS RESTING WITH EYES CLOSED, RR IS EVEN AND NONLABORED. CALL LIGHT IS CLOSE.
--- NOTE | 2020-07-02 06:35 | NUR ---
IN ROOM TO ADMINISTER THYROID MED. PT DENIES FURTHER NEEDS AT THIS TIME. CALL LIGHT IS CLOSE.
--- NOTE | 2020-07-02 07:13 | NUR ---
PT CALLED TO GET UP TO THE TOILET, SBA, PT IS BK TO BED NOW, CALL LIGHT IN PLACE, NO FURTHER REQUEST AT THIS TIME
--- NOTE | 2020-07-02 07:20 | NUR ---
Entered pt room for bedside shift report from Loree MCRAE. Pt was up to the bathroom with CARD LACER JACQUARD. According to report, the pt had an uneventful night. He was up to the bathroom several times throughout the night. Pt reports no pain or nausea or further needs at this time. Pt left with CARD LACER JACQUARD Jennifer, getting settled into bed after bathroom. Being covered, call light within reach, bed in lowest position.
--- NOTE | 2020-07-02 07:48 | NUR ---
PT DAUGHTER IS HERE AT THIS TIME, WARM BLANKETS GIVEN.
--- NOTE | 2020-07-02 08:30 | NUR ---
THIS RN TO ROOM FOR CARE COMFERENCE. PT AND DAUGHTER PARITICPATING IN CONFERENCE. FLUID RESTRICTION AND RECCOMENDATIONS REVEIWED WITH PT AND DAUGHTER. OCCUPATIONAL THERAPY STATES PT HAS BEEN ABLE TO DRESS AND TOILET HIMSELF AND CONTINUES TO RECEIVE ASSISTANCE FOR SHOWERS. PHYSICAL THERAPY STATES PT GET IN AND OUT OF BED, WALK FOR 6 MINUTES, AND WALK UP STAIRS. PHYSICAL THERPAY RECCOMENDS PT CONTINUE OUTPATIENT PHYSICAL THERAPY UPON DISCHARGE TO FURTHER MEAT GOALS. HEART FAILURE GREEN, YELLOW, AND RED ZONES REVIEWED WITH PT AND DAUGHTER. HANDOUTS AND MAGNET PROVIDED. PT REPORTS HE FEELS THAT HE IS IN THE YELLOW ZONE BUT "ALMOST GREEN" BECUASE OF SWELLING IN HIS ANKLES THAT IS "A LITTLE WORSE." MD AWARE. PT UP TO CHAIR. FEET ELEVATED. WARM BLANKETS PROVIDED. NO ADDITIONAL REQUESTS OR COMPLAINTS AT THIS TIME. CALL LIGHT WITHIN REACH. DAUGHTER AT BEDSIDE.
--- NOTE | 2020-07-02 08:45 | NUR ---
Entered pt room for morning med pass and assessment. Pt care meeting happening at this time, all care team present. Pt sitting up in chair, table over his lap, call light beside him, daughter present in the room. As care team leaves, assessment complete, see charting. Pt able to take meds without difficulty. Pt reports no pain or nausea at this time. Pt reports no knee discomfort at this time. Pt left sitting up in chair with occupational therapy in the room for treatment. Call light and side table within reach.
--- NOTE | 2020-07-02 08:50 | NUR ---
Met with pt and daughter for IDT. Reviewed goals from therapies. Pt has met the majority of his goals, daughter would like him to continue for strengthening through the weekend. Plan to dc on Monday and to cont. with OP aquatic therapy following transitional care. Daughter plans to take pt for toe nail care today as an outing. She denies needs or concerns.
--- NOTE | 2020-07-02 10:57 | NUR ---
Entered pt room for rounding. Pt was sitting up, reclined in chair, bedside table over his legs, call light within reach. Pt appears comfortable, eyes closed, breathing even and unlabored.
--- NOTE | 2020-07-02 11:15 | NUR ---
Pt left the facility with his daughter for an outing and pedicure/manicure.
--- NOTE | 2020-07-02 12:45 | NUR ---
Pt returned to room with daughter. Daughter leaving now for a bit. Pt sitting up in chair, reclined to elevate feet. Pt VSS upon returning. Pt oxygen NC applied at 4L. Pt given warm blankets and table over his lap. Lunch arrived and pt starting to eat now. Pt able to take his med without difficulty. Pt reports no pain or nausea or further needs at this time. Pt left in chair, reclined, call light and side table within reach.
--- NOTE | 2020-07-02 13:41 | NUR ---
PT CALL LIGHT ON. PT UP IN RESTROOM. PT HAS VOIDED AND HAD BOWEL MOVEMENT AND WIPED HIMSELF. STAND BY ASSIST, FRONT WHEEL WALKER BACK TO CHAIR. GLASS TOUGHENING OPERATOR TO BEDSIDE FOR VITALS AND ASSESSMENT. NO ADDITIONAL REQUESTS OR COMPLAINTS. CALL LIGHT WITHIN REACH.
--- NOTE | 2020-07-02 14:10 | NUR ---
Entered pt room to check on pt. Pt was absent, found with therapist in Physical Therapy room doing exercises. Will reassess pt when he returns.
--- NOTE | 2020-07-02 14:33 | NUR ---
Entered pt room to check on him after physical therapy session. Pt reports 0/10 pain and no nausea. Pt reports no further needs at this time. Pt left sitting up, reclining in chair, call light and side table within reach.
--- NOTE | 2020-07-02 15:37 | NUR ---
CHAIR ALARM SOUNDING. PT UP IN ROOM HEADING TO RESTROOM. STAND BY ASSIST, FRONT WHEEL WALKER UP TO RESTROOM. LINENS OVER CHAIR CHANGED. PT ASSISTED WITH NIKHIL CARE AND BACK TO BED. AFTERNOON MEDICATION GIVEN. I.S. USE DEMONSTRATED, PT REACHES 1000ML. WARM BLANKETS PROVIDED. NO ADDITIONAL REQUESTS OR COMPLAINTS. CALL LIGHT WITHIN REACH.
--- NOTE | 2020-07-02 17:39 | NUR ---
Entered pt room for check in. Helped pt remove his vest per his request. Pt having dinner now, and reports no pain or nausea. Pt left sittin up, reclining in chair, table and call light within reach.
--- NOTE | 2020-07-02 18:17 | NUR ---
Pt on transitional care program for deconditioning. Pt had care meeting today. Daughter was allowed to take him out of facility for a trip to the salon to have a vidal/pedi. Pt tolerating 2g Na diet and 1800ml fluid restriction well. Physical therapy x2, occupational therapy for ADLs. Pt anticipating DC for Monday. Voiding quantities sufficient, uses call light appropriately.
--- NOTE | 2020-07-02 18:38 | NUR ---
PT CALL LIGHT ON. THIS RN TO ROOM. PT FINISHED WITH DINNER, PT WAS ABLE TO EAT 100% AND SATES "I HAVEN'T EATEN THAT MUCH IN A LONG TIME." PT REQUESTS HIS LOWER LEGS AND FEET BE WASHED "BECAUSE THEY FEEL CLAMY." LOWER LEGS AND FEET WASHED WITH WARM SOAP AND WATER. FRESH SOCKS APPLIED. PT SMILING AND WATCHING TV. NO ADDITONAL REQUESTS OR COMPLAINTS AT THIS TIME. CALL LIGHT WITHIN REACH.
--- NOTE | 2020-07-02 19:46 | NUR ---
UP TO BR, VOIDED AND HAD VERY LOOSE BM, BACK TO CHAIR WITH 1PA/FWW. MUCH IMPROVED STAMINE AND GAIT, NO C/O PAIN. O2 4LNC. WATCHING TV. ON FLUID RESTRICTION, CONT ON TRANSITIONAL CARE
--- NOTE | 2020-07-02 21:10 | NUR ---
UP TO BR, 1PA,FWW, VOIDED AND HAD SMALL BM, BACK TO BED, TOLERATED WELL, o2 4lnc IN PLACE, NO SOB, NO GAIT PROBLEMS. MUCH IMPROVED. BACK TO BED
--- NOTE | 2020-07-02 22:05 | NUR ---
PT CALLED FOR ASSISTANCE IN GETTING READY FOR BED. HE BRUSHED HIS TEETH AND IS NOW IN BED. FRESH WATER AT BEDSIDE AND NEW GLASSESS CASE PROVIDED WE COULDNT FIND HIS OTHER HOSPITAL CASE. PT DENIES FURTHER NEEDS CALL LIGHT IS CLOSE.
--- NOTE | 2020-07-02 23:40 | NUR ---
RESTING, NO DISTRESS, ON 4LNC CHRONIC, TURNS SELF IN BED, USES CALL LIGHT APPROPRIATELY, TOLERATING FLUID RESTRICTIONS WELL
--- NOTE | 2020-07-03 01:20 | NUR ---
PT CALLED FOR HELP TO STRAIGHTEN UP HIS BLANKETS. ASSISTED PT AND HE DENIES FURTHER NEEDS. CALL LIGHT IS CLOSE.
--- NOTE | 2020-07-03 02:17 | NUR ---
STEVEN STRAIGHTEN UP AT HIS REQUESTS, USED URINAL, SMALL AMOUNTS OF URINE, NO C/O PAIN, O2 IN PLACE, CALL LIGHT AND FLUIDS A BEDSIDE
--- NOTE | 2020-07-03 04:31 | NUR ---
Pt has not slept much this shift. denies feeling pain or worried. On 4LNC O2, chronic. 1pa/fww, uses urinal and up to br, voiding QS clear urine and has had several soft bm's this shift, Senna tabs held at his requets. tolerating fluid restriction well. uses call light appropriately, daily weight was 72# kg. coop with assessments and vitals. turns self in bed. call light and fluids at bedside
--- NOTE | 2020-07-03 09:35 | NUR ---
PT ALERT ALERT AND ORIENTED X4 RESTING RECLINED IN CHAIR. PT ASSESSMENT COMPLETED AND AM MEDS ADMINSITERED CALL LIGHT AND H2O IN REACH. PT DENIES NEEDS OR CONCERNS.
--- NOTE | 2020-07-03 12:05 | NUR ---
CHECKING ON PT-LUNCH HAS JUST BEEN DELIVERED. PT INTERESTED IN LUNCH, GAVE BLESSING AND WILL CHECK BACK AGAIN
--- NOTE | 2020-07-03 13:41 | NUR ---
Pt sitting up in chair alert and oriented call light and h2o in reach. Pt tolerating fluid restriction well. Pt denies pain, sob, nasuea or any other symptoms at this time. RR16 on 4lpnc.
--- NOTE | 2020-07-03 19:37 | NUR ---
pt called to had his blankets put on legs, provided pt with blankets
--- NOTE | 2020-07-03 19:51 | NUR ---
UP IN CHAIR, LEGS ELEVATED, O2 4LNC CHRONIC, MOIST PRODUCTIVE COUGH OF CREAM YELLOW DISCHARGE, ABLE TO EXPECTORATE WELL. NO C/O SOB. IRREGULAR HEART RHYTHM, HX AFIB, DENIES C/O CP. NO REQUESTS. CALL LIGHT AT BEDSIDE ON FLUID RESTRICTION, TOLERATING WELL.WATCHING TV, ON TRANTIONAL CARE STATUS
--- NOTE | 2020-07-03 21:42 | NUR ---
PT CALLED TO GET OFF THE TOILET, PT PERFORMED PM ORAL CARE, PT IN NOW BK TO BED, CALL LIGHT IN REACH, REFILLED WATER, BLANKETS ON, NO FURTHER REQUEST AT THIS TIME
--- NOTE | 2020-07-03 22:05 | NUR ---
DIRECTOR OF COMMUNITY CENTER ROUNDING NOTE. PT RESTING IN BED WITH EYES CLOSED, LYING ON HIS R SIDE. RESPIRATIONS EVEN AND UNLABORED. PT APPEARS TO BE SLEEPING. CALL LIGHT IN REACH.
--- NOTE | 2020-07-03 22:14 | NUR ---
awake, watching tv, no c/o pain, uses call light, tolerating fluid restriction well
--- NOTE | 2020-07-04 01:48 | NUR ---
RESTING, NO DISTRESS, CALL LIGHT AND FLUIDS AT BEDSIDE, TOLERATING FLUID RESTRICTION WELL.
--- NOTE | 2020-07-04 03:08 | NUR ---
PATIENT CALLED FROM BATHROOM. ASSISTED PATIENT BACK TO BED. PATIENT USING WALKER. WEIGHT OBTAINED PER PRIMARY RN. PATIENT WANTS TO SIT BY THE EDGE OF THE BED. INSTRUCTED TO CALL WHEN NEEDS ASSISTANCE. CALL LIGHT WITHIN REACH.
--- NOTE | 2020-07-04 03:17 | NUR ---
PATIENT CALLED WANTING TO COVER HIM UP. DONE.
--- NOTE | 2020-07-04 04:07 | NUR ---
PATIENT CALLED AND ASKED FOR PAIN MEDS. PRIMARY RN NOTIFIED.
--- NOTE | 2020-07-04 04:55 | NUR ---
Pt continous on transional care status. Has slept more than yesterday 3 hrs. awake off and on. uses call light appropriately. On 4LNC O2. no sob or resp distress with activity, has slept time in hcair, legs elevated, decreaed edema of LE noted. NO c/o pain or n/v. tolerting fluid restriction. voiding QS.
--- NOTE | 2020-07-04 05:58 | NUR ---
AWAKESN EASILY, GOES BACK TO SLEEP, TOOK MED W/O PROBLEMS, CALL LIGHT AND FLUIDS AT BEDSIDE
--- NOTE | 2020-07-04 06:31 | NUR ---
PATIENT CALLED WANTING HIS COVERS STRAIGHT UP AND COVERED HIM UP. DONE.
--- NOTE | 2020-07-04 09:15 | NUR ---
THIS RN IN PTS ROOM TO GIVE MORNING MEDS AND DO PTS MORNING ASSESSMENT. PT UP TO CHAIR. THIS RN ASSISSTED PT TO SIT UP HIS LEGS. THIS RN ALSO PROVIDED PT WITH 2 WARM BLANKETS FOR COMFORT. PTS DAUGHTER IN ROOM AT THIS TIME. PTS DAUGHTER ASKED THIS RN WHAT HIS BLOOD PRESSURES HAVE BEEN RANGING, THIS RN DISCUSSED WITH HER WHAT THEY HAVE BEEN FOR THE PAST TWO DAYS.
--- NOTE | 2020-07-04 15:14 | NUR ---
THIS RN IN PTS ROOM TO ASSIST PT TO STAND TO PEE AT THIS TIME. PT BACK TO CHAIR WITH LEGS ELEVATED AND BLANKETS PLACED BACK ON HIS LAP
--- NOTE | 2020-07-04 18:49 | NUR ---
THIS RN IN PTS ROOM TO TRANSFER PT TO THE RESTROOM AND THEN BACK TO THE CHAIR WITH LEGS ELEVATED. PT DID PLACE A CONCERN THAT STAFF DID NOT GET TO HIS CALL LIGHT IN TIME TO REMOVE HIS TRAY FAST ENOUGH AND THAT HE HAD TO PUSH IT AWAY FROM IN FRONT OF HIM. PT ALSO STATED THAT HE DID NOT LIKE THE STEAK STATING "A DOG WOULN'T EVEN EAT THAT"
--- NOTE | 2020-07-04 22:00 | NUR ---
PT ASSESSMENT COMPLETE. PT UP TO BATHROOM AND BACK TO BED. DENTURES CLEANED AND SOAKING. NEW BOX OF TISSUES PROVIDED. ICE WATER REFILLED. PT DENIES FURTHER NEEDS AT THIS TIME. CALL LIGHT IN REACH.
--- NOTE | 2020-07-04 23:07 | NUR ---
taking over care at this time, pt in bed [address], eyes closed, call light at bedside
--- NOTE | 2020-07-05 00:10 | NUR ---
resting, O2 4LNC, no distress, eyes closed, turns self in bed, call light at hands reach
--- NOTE | 2020-07-05 02:06 | NUR ---
resting, no distress. eyes closed, O2 in plce, call light and fluids at bedside
--- NOTE | 2020-07-05 03:50 | NUR ---
RESTING, EYES CLOSED, NO RESP DISTRESS, ON 4LNC, TURN SELF IN BED. CALL LIGHT AT BEDSIDE
--- NOTE | 2020-07-05 04:54 | NUR ---
PT HAS SLEPT ALL SHIFT, USES URINAL, VOIDING QS. ON CHRONIC 4LNC 02 USE, NO SOB WITH EXERTION. PLEASANT AND COOP. TOLERATING FLUID RESTRICTIONS WELL. DAILY WEIGHT 71.2KG. 1KG WEIGHT LOSS. 1PA/FWW, USES CALL LIHT AND TURNS SELF IN BED. COOP.
--- NOTE | 2020-07-05 07:37 | NUR ---
THIS RN RECEIVED REPORT FROM RONNY FOWLER PT UP TO CHAIR AT THIS TIME.
--- NOTE | 2020-07-05 08:34 | NUR ---
PATIENT UP TO CHAIR FOR BREAKFAST, SBA FWW. LINENS CHANGED. CALL LIGHT IN REACH. NO FURTHER NEEDS AT THIS TIME.
--- NOTE | 2020-07-05 09:41 | NUR ---
this rn in pts room to give morning meds and do mornign assessment. pt up to bathroom at this time with occupational therapy at this time.
--- NOTE | 2020-07-05 15:20 | NUR ---
CASE MANAGEMENT REQUESTED RN TO SPEAK WITH DAUGHTER ABOUT DC MONDAY VS MONDAY. THIS RN SPOKE WITH ROSETTA, WHO INDICATED THAT SHE THOUGHT DC WOULD BE ON MONDAY SHE WANTS PT TO WORK WITH P.T. ON MONDAY.
--- NOTE | 2020-07-05 16:15 | NUR ---
PT GIVEN 5MG COUMADIN PER ORDER, INR 1.5. PT SITTING IN CHAIR. PT WITH OCCASIONAL PRODUCTIVE COUGH, CLEAR MUCOUS. PT GIVEN WATER PER FLUID RESTRICTION. PT DENIES OTHER NEEDS AT THSI TIME.
--- NOTE | 2020-07-05 17:43 | NUR ---
PT HAD UNEVENTFUL DAY. PT ON 4L NC CHRONIC. PT WALKED IN [place] WITH P.T. PT WITHOUT IV ACCESS, COMPLAINT WITH 1800ML FLUID RESTRICTION. PT WITH OCCASIONAL LOOSE COUGH, CLEAR MUCOUS. PT WITH TRACE EDEMA IN ANKLES. SBA WITH FWW. SPOKE WITH DAUGHTER WHO IS PLANNING FRO DISCHARGE ON MONDAY. PT VOIDING QS.
--- NOTE | 2020-07-05 20:45 | NUR ---
PT ASSESSMENT COMPLETE. PT UP FROM CHAIR, TO THE BATHROOM, AND BACK TO BED WITH SBA AND FWW, TOLERATED WELL. DENTURES REMOVED. PT ASSISTED TO LAY BACK IN BED, COVERED. PT DENIES PAIN, NASUEA, OR SOB. DENIES FURTHER NEEDS AT THIS TIME. CALL LIGHT IN REACH.
--- NOTE | 2020-07-05 23:52 | NUR ---
pt utilizes call light, reports that nasal canula is on the floor. writer producer to room to assist pt in replacing nc. pt denies further needs at this time. call light in reach.
--- NOTE | 2020-07-06 01:20 | NUR ---
PT FOUND OUT OF BED, IN BATHROOM, UNASSISTED. PT REMINDED TO CALL FOR HELP, HE STATES "I DIDN'T NEED HELP." FURTHER EDUCATION PROVIDED. PT BACK TO BED. DENIES FURTHER NEEDS AT THIS TIME. CALL LIGHT IN REACH. BED ALARM ACTIVE.
--- NOTE | 2020-07-06 04:35 | NUR ---
PT UP TO USE THE BATHROOM AND BACK TO BED. DAILY WEIGHT OBTAINED. 71.9KG. PT DENIES FURTHER NEEDS AT THIS TIME. CALL LIGHT IN REACH. BED ALARM ACTIVE.
--- NOTE | 2020-07-06 05:15 | NUR ---
BED ALARM SOUNDING. PT FOUND SITTING AT EDGE OF BED. PT STATES THAT HE WOULD LIKE TO SIT UP IN RECLINER. TRANSFERED, BLANKET PROVIDED. SCHEDULED MEDS ADMINISTERED. PT DENIES FURTHER NEEDS. CALL LIGHT AND PERSONAL CARE ITEMS IN REACH. LAB IN ROOM FOR BLOOD DRAW.
--- NOTE | 2020-07-06 09:13 | NUR ---
PATIENT AWAKE IN CHAIR. VITAL SIGNS STABLE. MEDS GIVEN. WATER FILLED. PATIENT UP TO BATHROOM WITH WALKER. PATIENT DENIES PAIN.
--- NOTE | 2020-07-06 10:37 | NUR ---
PT SITTNG UP IN CHAIR, ALERT AND AWARE OF MY PRESENCE. PT GREETED ME WITH A SMILE FOR THE FIRST TIME. PT STATED HE SLEPT PRETTY WELL, EXCEPT FOR THE TIMES RN'S WOKE HIM UP TO GIVE MEDS. PT SAID HE HAS BEEN FOR A WALK, AND HAD A BM. PT IS MORE ENGAGED WITH ME TODAY THAN ANYTIME BEFORE. GAVE A BLESSING, WILL FOLLOW NEEDED
--- NOTE | 2020-07-06 11:20 | NUR ---
PATIENT REQUESTS HELP UP FROM THE TOILET. PATIENT EXPRESSES FRUSTRATION WITH BEING UNABLE TO HAVE A BM AND REQUESTS MIRALAX. WIPED DOWN PATIENT'S BEDSIDE TABLES. PATIENS RESPIRATIONS EVEN AND UNLABORED.
--- NOTE | 2020-07-06 13:13 | NUR ---
THIS RN IN PTS ROOM TO GIVE AFTERNOON MEDS. PT UP TO CHAIR RESTINTG WHEN THIS RN ENTERED ROOM.
--- NOTE | 2020-07-06 13:45 | NUR ---
SPOKE BRIEFLY WITH PATIENT THIS MORNING REGARDING DISCHARGE TOMORROW. HE STATES HE FEELS READY TO GO HOME, ASKS THAT I REMIND HIS DAUGHTER ROSETTA WHEN SHE COMES IN. DAUGHTER HAS NOT COME IN YET TODAY, CALLED HER PHONE AND LEFT A MESSAGE THAT DISCHARGE IS STILL PLANNED FOR TOMORROW AND THERE IS A FORM GIVING THEM THIS INFORMATION WAITING FOR HER AND PATIENT TO SIGN TODAY. ASKED THAT SHE TALK WITH STAFF NURSES WHEN SHE COMES IN AND THEY WILL PROVIDE THIS. ALSO LEFT MESSAGE THAT IF SHE HAS QUESTIONS CASE MANAGEMENT WILL BE BACK TOMORROW MORNING OR SHE CAN TALK WITH STAFF NURSES TODAY ANYTIME. CALLBACK NUMBER GIVEN.
--- NOTE | 2020-07-06 14:20 | NUR ---
CHRISTIE FROM [facility] IN ROOM WITH PT AT THIS TIME.
--- NOTE | 2020-07-06 16:02 | NUR ---
PATIENT AWAKE IN CHAIR. SON AT BEDSIDE. MED GIVEN. WATER FILLED. NO FURTHER REQUESTS AT THIS TIME.
--- NOTE | 2020-07-06 18:14 | NUR ---
PATIENT RESTING IN CHAIR. RESPIRATIONS EVEN AND UNLABORED. PATIENT DENIES PAIN. REPOSITIONED PATIENT IN CHAIR PER HIS REQUEST. NO FURTHER REQUESTS AT THIS TIME.
--- NOTE | 2020-07-06 19:20 | NUR ---
REPORT RECEIVED FROM DAY SHIFT RN. PT SITTING IN RECLINER WITH EYES CLOSED. BLE ELEVATED. O2 4L/NC IN PLACE. RESPIRATIONS EVEN AND UNLABORED. CALL LIGHT IN REACH. WHITE BOARD UPDATED.
--- NOTE | 2020-07-06 20:10 | NUR ---
PATIENT CALLED TO USE THE BATHROOM. SBA USING WALKER.
--- NOTE | 2020-07-06 20:30 | NUR ---
EVENING ASSESSMENT COMPLETE. SCHEDULED MEDS ADMINISTERED PER EMAR. STOOL SOFTENER HELD DUE TO MULTIPLE BM. PT DENIES PAIN OR SOB. O2 4L/NC IN PLACE. PT REMAINS WELL WITHIN FLUID RESTRICTION. VOID QS. DENIES QUESTIONS OR CONCERNS. CALL LIGHT IN REACH.
--- NOTE | 2020-07-06 20:54 | NUR ---
PT UP TO BR TO HAVE LOOSE BM AND VOID 150 ML CLEAR YELLOW URINE. SBA WITH FWW BACK TO BED, TENISHA WELL. NO C/O SOB. PT LYING ON RIGHT SIDE WITH BLE ELEVATED.
--- NOTE | 2020-07-06 22:37 | NUR ---
PT SITTING ON SIDE OF BED STATES "I'M WIDE AWAKE". SNACK PROVIDED PER PT REQUEST.
--- NOTE | 2020-07-06 22:43 | NUR ---
PATIENT CALLED. PATIENT NEEDS HELP BACK TO BED.
--- NOTE | 2020-07-07 00:26 | NUR ---
WENT TO THE ROOM TO CHECK PATIENT. PATIENT C/O HUNGRY. CRACKERS AND PUDDING PROVIDED. PATIENT IS SITTING AT THE EDGE OF THE BED.
--- NOTE | 2020-07-07 00:41 | NUR ---
JUST CHECKED PATIENT. STATED HE IS OKAY. STILL SITTING AT THE EDGE OF THE BED.
--- NOTE | 2020-07-07 01:14 | NUR ---
ASSISTED PT TO GET INTO BED. RLE ELEVATED ON PILLOW. O2 4L/NC IN PLACE. NO FURTHER NEEDS. CALL LIGHT IN REACH.
--- NOTE | 2020-07-07 05:41 | NUR ---
I&OS AND DAILY WEIGHT DONE AND CHARTED. HELPED PT TO THE CHAIR WITH HIS FWW FROM THE BATHROOM. BEDSIDE TABLE AND CALL LIGHT IN REACH. PT NEEDS NOTHING MORE AT THIS TIME.
--- NOTE | 2020-07-07 06:43 | NUR ---
PT SITTING IN RECLINER WITH BLE ELEVATED. SCHEDULED MEDS ADMINISTERED PER EMAR. WARM BLANKET PROVIDED.
--- NOTE | 2020-07-07 07:50 | NUR ---
PATIENT SLEEPING IN THE RECLINER. WHITE BOARD UPDATED. CALL LIGHT WITHIN REACH. NO OTHER NEEDS AT THIS TIME
--- NOTE | 2020-07-07 08:00 | NUR ---
REPORT RECEIVED. PT UP IN CHAIR. 4L NC IN [place]. CALL LGT IN REACH.
--- NOTE | 2020-07-07 08:50 | NUR ---
Spoke with Juan Diego and his daughter, Amanda. Plan to dc to home today. Daughter would like OP therapy and HH. Discussed they are both billed to medicare so have to choose one or the other. They would like OP therapy PT as they would like to cont. with aquatherapy as pt has painful knees. Dr. Toribio updated and orders completed. Chart faxed to OP therapy.
--- NOTE | 2020-07-07 09:11 | NUR ---
PATIENT SITTING UP IN CHAIR. VITAL SIGNS AND I&O DONE. CALL LIGHT WITHIN REACH. NO OTHER NEEDS AT THIS TIME
[2020-07-07] MEDS ORDERED: TAMSULOSIN HCL0.4 MG PO (09:12)
[2020-07-07] MEDS ORDERED: TORSEMIDE20 MG PO (09:13)
--- NOTE | 2020-07-07 10:29 | NUR ---
ASSESSMENT COMPLETED. PT SITTING IN CHAIR. 1+ BILAT LE EDEMA PRESENT. LUNGS CLEAR AND DIM. DENEIS N/T. DENEIS PAIN. PULSES +2. DAUGHTER AT BEDSIDE. CALL LIGHT IN REACH.
--- NOTE | 2020-07-07 14:09 | NUR ---
PT DRESSED, SITTING IN CHAIR WAITING FOR DC. HIS DAUGHTER AT HIS SIDE. HE SMILED, WAVED ME IN AND DAUGHTER THANKED ME FOR CARING FOR PT. PT SAID HE FEELS MUCH STRONGER AND IS LOOKING FORWARD TO SITTING OUTSIDE IN THE SUN- SHINE. GAVE BLESSING, WILL FOLLOW
== END 2020-07-07 11:05 | disposition home or self-care (01) | DRG 948 ==
LOC: MS 10:40
PROVIDERS: ADMIT Student in an Organized Health Care Education/Training Program; ATTEND Student in an Organized Health Care Education/Training Program
DX: R53.1 Weakness (principal); J96.11 Chronic respiratory failure with hypoxia; I50.32 Chronic diastolic (congestive) heart failure; N40.1 Benign prostatic hyperplasia with lower urinary tract symptoms; R33.8 Other retention of urine; I11.0 Hypertensive heart disease with heart failure; I25.10 Atherosclerotic heart disease of native coronary artery without angina pectoris; J44.9 Chronic obstructive pulmonary disease, unspecified; E78.5 Hyperlipidemia, unspecified; I73.9 Peripheral vascular disease, unspecified; E03.9 Hypothyroidism, unspecified; I48.0 Paroxysmal atrial fibrillation; Z99.81 Dependence on supplemental oxygen; Z95.5 Presence of coronary angioplasty implant and graft; Z79.01 Long term (current) use of anticoagulants; Z79.51 Long term (current) use of inhaled steroids; Z79.899 Other long term (current) drug therapy
CPT/HCPCS: 36415; 80048; 80069; 85610; 94760; 97110; 97116; 97140; 97162; 97530; 97535

== ENCOUNTER 2020-12-10 20:03 | Observation (INO) | payer MEDICARE ==
[~2020-12-10] VITALS: Ht 180.3 cm; Wt 74.1 kg
[~2020-12-10 20:03] MED LIST changes: +FLOMAX0.4 MG PO; +OXYCODONE HCL5 MG PO; +TORSEMIDE20 MG PO
--- OUTSIDE RECORDS SUMMARY | 2020-12-10 20:06 | XMS ---
PreManage Notification: TRENT JUNIOR Security Desktop Analyst Events No recent Security Events currently on file CRITERIA MET - [facility] - 2 Visits in 30 Days CARE PROVIDERS There are no care providers on record at this time. Levar has no Care Guidelines for this patient. Srinath VISIT COUNT (12 MO.) 3 [facility] [place] [facility]. TOTAL 3 NOTE: Visits indicate total known visits. ED/C VISIT TRACKING (12 MO.) 12/10/2020 20:[address] [facility] [place] TYPE: Emergency COMPLAINT: - SOB 12/07/2020 11:35 [facility] TYPE: Emergency COMPLAINT: - FALL 06/21/2020 10:44 [facility] TYPE: Emergency COMPLAINT: - SOB, LATHARGIC INPATIENT VISIT TRACKING (12 MO.) 12/07/2020 11:36 [facility] TYPE: Observation COMPLAINT: - BACK PAIN 06/24/2020 10:40 [facility] TYPE: Medical Surgical COMPLAINT: - DECONDITIONING DIAGNOSES: - Hypertensive heart disease with heart failure - Paroxysmal atrial fibrillation - Other retention of urine - Dependence on supplemental oxygen - Other fci (current) drug therapy - [facility] (current) use of inhaled steroids - [facility] (current) use of anticoagulants - Peripheral vascular disease, unspecified - Chronic obstructive pulmonary disease, unspecified - Benign prostatic hyperplasia with lower urinary tract symptoms - Atherosclerotic heart disease of [place] coronary artery without angina pectoris - Weakness - Hyperlipidemia, unspecified - Chronic respiratory failure with hypoxia - Presence of coronary angioplasty implant and graft - Hypothyroidism, unspecified - Chronic diastolic (congestive) heart failure 06/21/2020 15:22 [facility] TYPE: Medical Surgical COMPLAINT: - DYASTOLIC HEART FAILURE DIAGNOSES: - Dependence on supplemental oxygen - Hypertensive heart and chronic kidney disease with heart failure and stage 1 through stage 4 chronic kidney disease, or unspecified chronic kidney disease - Benign prostatic hyperplasia without lower urinary tract symptoms - Chronic obstructive pulmonary disease, unspecified - Paroxysmal atrial fibrillation - Old myocardial infarction - Chronic kidney disease, unspecified - Acute on chronic diastolic (congestive) heart failure - Presence of coronary angioplasty implant and graft - Encounter for immunization - Chronic respiratory failure with hypoxia - Peripheral vascular disease, unspecified - [facility] (current) use of anticoagulants - Other fci (current) drug therapy - Atherosclerotic heart disease of [place] coronary artery without angina pectoris - Contact with and (suspected) exposure to other viral communicable diseases - Hyperlipidemia, unspecified - [facility] (current) use of inhaled steroids - Personal history of nicotine dependence [email or web address]
--- NOTE | 2020-12-11 01:40 | NUR ---
PATIENT ARRIVED VIA STRETCHER. PATIENT ASSISTED TO HOSPITAL BED BY STAFF. VITALS TAKEN AND RECORDED. PATIENT HAS ARIAS IN PLACE. PATIENTS ADMISSION COMPLETED. ASSESMENT COMPLETED. PATIENT DENIES ANY NEEDS. PATIENTS MEDICATIONS GIVEN PER ORDER. PATIENT OREINTED TO ROOM AND FLOOR. EDUCATED ON USE OF CALL LIGHT. PATIENT IS VERY DROWSY BUT EASY TO AWAKEN. PATIENTS BED ALARM PLACED ON FOR SAFETY. CALL LIGHT IN REACH.
--- NOTE | 2020-12-11 02:20 | NUR ---
PATIENT IS RESTING IN BED WITH EYES CLSOED, RR16. CALL LIGHT IN REACH AND ALARM ON FOR SAFETY.
--- NOTE | 2020-12-11 04:16 | NUR ---
PATIENT IS RESTIN INBED WITH EYES CLOSED, RR 15. CALL LIGHT IN REACH AND ALARM ON FOR SAFETY.
--- NOTE | 2020-12-11 05:37 | NUR ---
PATIENT IS MORE AWAKE AND ALERT THIS AM. PATIENT IS ASKING QUESTIONS ABOUT HOSPITAL STAY, ANSWERED PATIENTS QUESTIONS. NO FURTHER QUESTIONS. PATIENT PROVIDED WITH JUICE PER REQUEST. PATIENT REPOSITIONED IN BED. VITALS TAKEN AND RECORDED. ARIAS EMPTIED AND ARIAS CARE COMPLETED. INTAKE AND OUPUT RECORDED. CALL LIGHT IN REACH. NO FURTHER NEEDS. ALARM ON FOR SAFETY.
--- NOTE | 2020-12-11 06:41 | NUR ---
PATIENT RESTED FOR THE MAJORITY OF THE SHIFT. MILTON IS ON A 2GM NA LIMIT DIET, TOLERATING WELL HAS ONLY HAD CLEARS THIS AM. NO NAUSEA NOTED.ARIAS IN PLACE. ALARM ON FOR SAFETY. PT CONSULT ORDER. PATIENT HAS NOT BEEN OUT OF BED THIS AM. PATIENT WAS DROWSY AT THE BEGINNING OF THE SHIFT. PATIENT HAS BEEN INCREASINGLY AWAKE THIS AM AND MORE ALERT
--- NOTE | 2020-12-11 07:05 | NUR ---
PATIENT HAS INCREASED PHLEGM. MARIAJOSE HOOKED UP FOR PATIENT. PATIENT GIVEN FRESH APPLE JUICE. PATIENT REPOSITIONED. NO FURTHER NEEDS. NOTED. CALL LIGHT IN REACH.
--- NOTE | 2020-12-11 07:30 | NUR ---
SHIFT REPORT FROM NEHAL MCRAE INCLUDED: pt has been having some difficulty breathing recently, and his daughter brought him in to the ER. pt is back to baseline this morning. pt requests frequent repositioning. pt has suction yankuer in hands to helop with excess mucous buildup. pt currently in bed, breathing even and unlabored, table and call light within reach.
--- NOTE | 2020-12-11 08:23 | NUR ---
MED REC COMPLETE
--- NOTE | 2020-12-11 09:00 | NUR ---
ROUNDING pt having breakfast, daughter at bedside feeding. pt in bed, table and call light within reach.
--- NOTE | 2020-12-11 09:30 | NUR ---
MED PASS + ASSESSMENT. pt able to take meds slowly, but with minimal difficulty. pt denies needs at this time. pt assessment complete, VSS, table and call light within reach.
--- NOTE | 2020-12-11 10:00 | NUR ---
ROUNDING pt lying in bed, daughter at bedside. pt breathing even and unlabored, table and call light within reach.
--- NOTE | 2020-12-11 11:00 | NUR ---
Dr Starkey in and spoke with daughter, Amanda. Plan to take pt home. Daughter states dad not wanting to leave home to hospital. He also told her he wished he would . Plans to take him home.
--- NOTE | 2020-12-11 11:00 | NUR ---
ROUNDING pt lying in bed, daughter at bedside. pt breathing even and unlabored, table and call light within reach.
--- NOTE | 2020-12-11 11:20 | NUR ---
Notified by Dr. Starkey xray shows compression fx of back and she and daughter discussed and would like SNF placement. In and spoke with daughter and first choice is [facility]. Called and they are not accepting patients. Called [facility] as second choice and faxed chart.
--- NOTE | 2020-12-11 11:39 | NUR ---
PATIENT AWAKE IN BED, FAMILY MEMBER IN ROOM. VITALS AND I&OS CHARTED. REFUSED LUNCH ORDER, ANTICIPATING D/C. CALL LIGHT IN REACH
--- NOTE | 2020-12-11 12:00 | NUR ---
ROUNDING pt lying in bed, daughter at bedside. pt breathing even and unlabored, table and call light within reach.
--- NOTE | 2020-12-11 12:06 | NUR ---
Notified by Brenna at [facility] they will accept this pt. They are picking up another pt today in [place] and will transport Trav at 1345. Covid swab ordered. Orders completed by Dr. Starkey and faxed to [facility] with PAS[facility], progress note, PT manpreet. Will send Covid results when completed.
--- NOTE | 2020-12-11 12:30 | NUR ---
Updated daughter all is in order. She will take pts clothing later today. Denies further needs, is aware pt will leave at 1345.
--- NOTE | 2020-12-11 12:51 | NUR ---
RT COLLECTED COVID 19 SWAB WITH NO COMPLICATIONS. RT USED THE CEPHEID RAPID TEST THROUGH [facility] PER DR REQUEST AT THIS TIME.
--- NOTE | 2020-12-11 15:11 | EKG ---
[facility] [address] [place] [address] Signed Atrial fibrillation Incomplete left bundle branch block Nonspecific ST and T wave abnormality Abnormal ECG When compared with ECG of 07-DEC-2020 12:45, Vent. rate has increased BY 31 BPM Nonspecific T wave abnormality no longer evident in Anterior leads Nonspecific T wave abnormality now evident in Lateral leads Confirmed by EMILY BAIRES MD ([id number]) on 12/11/2020 3:11:08 PM Electronically Signed By: EMILY BAIRES MD 12/11/20 1511 PATIENT NAME: TRENT JUNIOR Electrocardiogram DATE OF : 31 PHYSICIAN: EMILY BAIRES MD REPORT #: [id number] REPORT IS CONFIDENTIAL AND NOT TO BE RELEASED WITHOUT AUTHORIZATION
== END 2020-12-11 13:50 | disposition home or self-care (01) ==
LOC: ED 20:03 → MS 20:04
PROVIDERS: ADMIT Internal Medicine; ATTEND Internal Medicine
DX: R53.1 Weakness (principal); M48.56XA Collapsed vertebra, not elsewhere classified, lumbar region, initial encounter for fracture; I25.10 Atherosclerotic heart disease of native coronary artery without angina pectoris; J44.9 Chronic obstructive pulmonary disease, unspecified; E78.5 Hyperlipidemia, unspecified; I73.9 Peripheral vascular disease, unspecified; J96.11 Chronic respiratory failure with hypoxia; I13.0 Hypertensive heart and chronic kidney disease with heart failure and stage 1 through stage 4 chronic kidney disease, or unspecified chronic kidney disease; I50.42 Chronic combined systolic (congestive) and diastolic (congestive) heart failure; N18.9 Chronic kidney disease, unspecified; I48.91 Unspecified atrial fibrillation; I44.7 Left bundle-branch block, unspecified; Z87.891 Personal history of nicotine dependence; Z20.822 Contact with and (suspected) exposure to COVID-19; Z79.01 Long term (current) use of anticoagulants; Z79.899 Other long term (current) drug therapy
CPT/HCPCS: 36600; 71045; 72100; 73502; 80053; 81001; 82803; 83880; 84484; 85025; 85610; 85730; 93005; 93010; 94640; 94760; C9803; J1940

== ENCOUNTER 2021-05-25 12:49 | Emergency (ER) | payer MEDICARE ==
[~2021-05-25] VITALS: Ht 180.3 cm; Wt 74.1 kg
[2021-05-25] MEDS ORDERED: HYDRALAZINE HCL10 MG PO (12:58)
== END 2021-05-25 15:43 | disposition home or self-care (01) ==
LOC: ED 12:49
DX: R04.0 Epistaxis (principal); I25.2 Old myocardial infarction; I10 Essential (primary) hypertension; J44.9 Chronic obstructive pulmonary disease, unspecified; Z87.891 Personal history of nicotine dependence; Z79.899 Other long term (current) drug therapy; Z79.01 Long term (current) use of anticoagulants
CPT/HCPCS: 85025; 85610; 99283

== ENCOUNTER 2022-03-25 18:33 | Emergency (ER) | payer MEDICARE ==
[~2022-03-25] VITALS: Ht 180.3 cm; Wt 74.1 kg
[~2022-03-25 18:33] MED LIST changes: +ALBUTEROL2.5 MG/3 M INH
[2022-03-25] MEDS ORDERED: HYDROCODON-ACE1 EA10 PO (19:56)
== END 2022-03-25 20:41 | disposition home or self-care (01) ==
LOC: ED 18:33
DX: S20.211A Contusion of right front wall of thorax, initial encounter (principal); R00.1 Bradycardia, unspecified; W19.XXXA Unspecified fall, initial encounter; I25.2 Old myocardial infarction; I10 Essential (primary) hypertension; J44.9 Chronic obstructive pulmonary disease, unspecified; Z87.891 Personal history of nicotine dependence; Z79.899 Other long term (current) drug therapy; Z79.01 Long term (current) use of anticoagulants
CPT/HCPCS: 71046; 99283-25; A9270

== ENCOUNTER 2022-04-25 11:48 | Emergency (ER) | payer MEDICARE ==
[~2022-04-25] VITALS: Ht 180.3 cm; Wt 74.1 kg
[~2022-04-25 11:48] MED LIST changes: +HYDROCODON-ACE1 EA10 PO
== END 2022-04-25 17:10 | disposition home or self-care (01) ==
LOC: ED 11:48
DX: S32.009A Unspecified fracture of unspecified lumbar vertebra, initial encounter for closed fracture (principal); N28.9 Disorder of kidney and ureter, unspecified; I25.2 Old myocardial infarction; I10 Essential (primary) hypertension; N40.0 Benign prostatic hyperplasia without lower urinary tract symptoms; J44.9 Chronic obstructive pulmonary disease, unspecified; Z87.891 Personal history of nicotine dependence; Z79.899 Other long term (current) drug therapy; Z79.01 Long term (current) use of anticoagulants; W19.XXXA Unspecified fall, initial encounter
CPT/HCPCS: 36415; 72100; 80053; 82553; 85025; 99284-25